=== PATIENT | female | born 2000 | race Caucasian/White ===

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

== ENCOUNTER 2021-02-16 18:43 | Emergency (ER) | payer OTHER ==
[2021-02-16 18:55] VITALS: TEMP 97.9
[2021-02-16] MEDS ORDERED: SODIUM CHLORIDE 0.9% 1,000 ML IV STA (19:05)
--- NOTE | 2021-02-16 19:18 | ED ---
Abdominal Pain HPI - General Chief Complaint: Abdominal Pain Stated Complaint: flank pain Time Seen by Provider: 02/16/21 18:56 Source: patient, RN notes reviewed Mode of arrival: ambulatory Limitations: no limitations - History of Present Illness Initial Comments: Patient is a 20-year-old female that presents to emergency department complaining of bilateral flank pain, hematuria and possibly passing some kidney stones. She notes that she been having back pain for last couple weeks but the hematuria started a few days ago. She notes that she does have extreme discomfort on urination at this point. She denied any possible STDs or at this point. She was in no apparent distress or pain while sitting up during the exam and interview. She denied any pain stating was more just uncomfortable. She declined need for any pain medication. She denied any nausea. She denied chest pain shortness breath headache vomiting diarrhea constipation fever fatigue chills. - Related Data Previous Rx's Medication Instructions Recorded Ciprofloxacin HCl [Cipro] 500 mg PO Q12HR #14 tablet 02/16/21 Allergies Allergy/AdvReac Type Severity Reaction Status Date / Time No Known Allergies Allergy Verified 02/16/21 19:15 Review of Systems ROS Statement: Those systems with pertinent positive or pertinent negative responses have been documented in the HPI. ROS Other: All systems not noted in ROS Statement are negative. Past Medical History Past Medical History: GERD/Reflux, Skin Disorder Additional Past Medical History / Comment(s): migraines, psoriasis, History of Any Multi-Drug Resistant Organisms: None Reported Past Surgical History: Adenoidectomy, Ear Surgery, Tonsillectomy Past Anesthesia/Blood Transfusion Reactions: No Reported Reaction Past Psychological History: Anxiety Smoking Status: Never smoker Past Alcohol Use History: None Reported Past Drug Use History: None Reported - Past Family History Mother Family Medical History: No Reported History General Exam Limitations: no limitations General appearance: alert, in no apparent distress Head exam: Present: atraumatic, normocephalic, normal inspection Eye exam: Present: normal appearance, PERRL, EOMI. Absent: scleral icterus, conjunctival injection, periorbital swelling Neck exam: Present: normal inspection Respiratory exam: Present: normal lung sounds bilaterally. Absent: respiratory distress, wheezes, rales, rhonchi, stridor Cardiovascular Exam: Present: regular rate, normal rhythm, normal heart sounds. Absent: systolic murmur, diastolic murmur, rubs, gallop, clicks GI/Abdominal exam: Present: soft, normal bowel sounds. Absent: distended, tenderness, guarding, rebound, rigid Extremities exam: Present: normal inspection, full ROM, normal capillary refill. Absent: tenderness, pedal edema, joint swelling, calf tenderness Back exam: Present: normal inspection, CVA tenderness (R). Absent: CVA tenderness (L) Neurological exam: Present: alert, oriented X3, CN II-XII intact Psychiatric exam: Present: normal affect, normal mood Skin exam: Present: warm, dry, intact, normal color. Absent: rash Course Vital Signs 02/16/21 18:50 Temperature 97.9 F Pulse Rate 95 Respiratory 20 Rate Blood Pressure 106/68 O2 Sat by Pulse 99 Oximetry Medical Decision Making - Medical Decision Making 20-year-old female complaining of bilateral flank pain, hematuria, possible stones passing. Labs, CT of the abdomen pelvis, 1 L normal saline ordered. Transfer attacks. CT negative for any acute process, kidney stones. 1 g of Rocephin ordered. Case discussed with Dr. Mathews, patient discharge home with follow-up and strict return parameters. - Lab Data Result diagrams: 02/16/21 19:28 02/16/21 19:28 Lab Results 02/16/21 02/16/21 02/16/21 Range/Units 19:28 19:28 19:28 WBC 8.9 (4.0-11.0) k/uL RBC 4.32 (3.80-5.40) m/uL Hgb 13.6 (11.4-16.0) gm/dL Hct 39.5 (34.0-46.0) % MCV 91.3 (80.0-100.0) fL MCH 31.4 (25.0-35.0) pg MCHC 34.4 (31.0-37.0) g/dL RDW 12.3 (11.5-15.5) % Plt Count 198 (150-450) k/uL MPV 7.4 Neutrophils % 73 % Lymphocytes % 19 % Monocytes % 6 % Eosinophils % 2 % Basophils % 0 % Neutrophils # 6.4 (1.3-7.7) k/uL Lymphocytes # 1.7 (1.0-4.8) k/uL Monocytes # 0.5 (0-1.0) k/uL Eosinophils # 0.1 (0-0.7) k/uL Basophils # 0.0 (0-0.2) k/uL Sodium (137-145) mmol/L Potassium (3.5-5.1) mmol/L Chloride (98-107) mmol/L Carbon Dioxide (22-30) mmol/L Anion Gap mmol/L BUN (7-17) mg/dL Creatinine (0.52-1.04) mg/dL Est GFR (CKD-EPI)AfAm (>60 ml/min/1.73 sqM) Est GFR (CKD-EPI)NonAf (>60 ml/min/1.73 sqM) Glucose (74-99) mg/dL Calcium (8.4-10.2) mg/dL Total Bilirubin (0.2-1.3) mg/dL AST (14-36) U/L ALT (4-34) U/L Alkaline Phosphatase (38-126) U/L Total Protein (6.3-8.2) g/dL Albumin (3.5-5.0) g/dL Amylase (30-110) U/L Lipase (23-300) U/L Urine Color Yellow Urine Appearance Cloudy H (Clear) Urine pH 6.0 (5.0-8.0) Ur Specific [place] 1.028 (1.001-1.035) Urine Protein 2+ H (Negative) Urine Glucose (UA) Negative (Negative) Urine Ketones Negative (Negative) Urine Blood Large H (Negative) Urine Nitrite Negative (Negative) Urine Bilirubin Negative (Negative) Urine Urobilinogen <2.0 (<2.0) mg/dL Ur Leukocyte Esterase Large H (Negative) Urine RBC >182 H (0-5) /hpf Urine WBC >182 H (0-5) /hpf Ur Squamous Epith Cells 9 H (0-4) /hpf Urine Bacteria Rare H (None) /hpf Urine Mucus Few H (None) /hpf Urine HCG, Qual Not Detected (Not Detectd) 02/16/21 Range/Units 19:28 WBC (4.0-11.0) k/uL RBC (3.80-5.40) m/uL Hgb (11.4-16.0) gm/dL Hct (34.0-46.0) % MCV (80.0-100.0) fL MCH (25.0-35.0) pg MCHC (31.0-37.0) g/dL RDW (11.5-15.5) % Plt Count (150-450) k/uL MPV Neutrophils % % Lymphocytes % % Monocytes % % Eosinophils % % Basophils % % Neutrophils # (1.3-7.7) k/uL Lymphocytes # (1.0-4.8) k/uL Monocytes # (0-1.0) k/uL Eosinophils # (0-0.7) k/uL Basophils # (0-0.2) k/uL Sodium 140 (137-145) mmol/L Potassium 3.9 (3.5-5.1) mmol/L Chloride 107 (98-107) mmol/L Carbon Dioxide 24 (22-30) mmol/L Anion Gap 9 mmol/L BUN 12 (7-17) mg/dL Creatinine 0.62 (0.52-1.04) mg/dL Est GFR (CKD-EPI)AfAm >90 (>60 ml/min/1.73 sqM) Est GFR (CKD-EPI)NonAf >90 (>60 ml/min/1.73 sqM) Glucose 75 (74-99) mg/dL Calcium 9.6 (8.4-10.2) mg/dL Total Bilirubin 0.4 (0.2-1.3) mg/dL AST 22 (14-36) U/L ALT 11 (4-34) U/L Alkaline Phosphatase 67 (38-126) U/L Total Protein 6.8 (6.3-8.2) g/dL Albumin 4.4 (3.5-5.0) g/dL Amylase 55 (30-110) U/L Lipase 55 (23-300) U/L Urine Color Urine Appearance (Clear) Urine pH (5.0-8.0) Ur Specific [place] (1.001-1.035) Urine Protein (Negative) Urine Glucose (UA) (Negative) Urine Ketones (Negative) Urine Blood (Negative) Urine Nitrite (Negative) Urine Bilirubin (Negative) Urine Urobilinogen (<2.0) mg/dL Ur Leukocyte Esterase (Negative) Urine RBC (0-5) /hpf Urine WBC (0-5) /hpf Ur Squamous Epith Cells (0-4) /hpf Urine Bacteria (None) /hpf Urine Mucus (None) /hpf Urine HCG, Qual (Not Detectd) - Radiology Data Radiology results: report reviewed, image reviewed CT of the abdomen and pelvis: Negative cc scan of the abdomen pelvis no evidence of renal stones or obstruction. Disposition Clinical Impression: Pyelonephritis Disposition: HOME SELF-CARE Condition: Stable Instructions (If sedation given, give patient instructions): Kidney Infection (ED) Additional Instructions: Please return to the Emergency Department if symptoms worsen or any other concerns. Please return if symptoms worsen and/or use pains any fever nausea vomiting. Take antibiotics as prescribed until complete. Can take Tylenol Motrin as needed for pain control. Follow-up with primary care in the next 3-5 days. Increase oral fluid intake. Is patient prescribed a controlled substance at d/c from ED?: No Referrals: Parveen Wiggins MD [Primary Care Provider] - 1-2 days Time of Disposition: 21:10
[2021-02-16 19:41] LABS: Basophils % (A) 0 %; Eosinophils # (A) 0.1 k/uL (0-0.7); Eosinophils % (A) 2 %; HCT 39.5 % (34.0-46.0); HGB 13.6 gm/dL (11.4-16.0); Lymphocytes # (A) 1.7 k/uL (1.0-4.8); Lymphocytes % (A) 19 %; MCH 31.4 pg (25.0-35.0); MCHC 34.4 g/dL (31.0-37.0); MCV 91.3 fL (80.0-100.0); Mean Platelet Volume 7.4; Monocytes # (A) 0.5 k/uL (0-1.0); Monocytes % (A) 6 %; Neutrophils # (A) 6.4 k/uL (1.3-7.7); Neutrophils % (A) 73 %; Platelet Count 198 k/uL (150-450); RBC 4.32 m/uL (3.80-5.40); RDW 12.3 % (11.5-15.5); WBC 8.9 k/uL (4.0-11.0)
[2021-02-16 19:47] LABS: Appearance,Urine Cloudy (Clear); Bacteria,Urine Rare /hpf; Bilirubin,Urine Negative (Negative); Blood,Urine Large (Negative); Color,Urine Yellow; Glucose,Urine (UA) Negative (Negative); Ketones,Urine Negative (Negative); Leukocyte Esterase,Urine Large (Negative); Mucus,Urine Few /hpf; Nitrite,Urine Negative (Negative); Protein,Urine 2+ (Negative); RBC,Urine >182 /hpf (0-5); Specific Gravity,Urine 1.028 (1.001-1.035); Squamous Epithelial Cell,Urine 9 /hpf (0-4); Urobilinogen,Urine <2.0 mg/dL (<2.0); WBC,Urine >182 /hpf (0-5)
[2021-02-16 19:52] LABS: ALT 11 U/L (4-34); AST 22 U/L (14-36); African American GFR (CKD) >90 (>60 ml/min/1.73 sqM); Albumin 4.4 g/dL (3.5-5.0); Alkaline Phosphatase 67 U/L (38-126); Amylase 55 U/L (30-110); Anion Gap 9 mmol/L; Blood Urea Nitrogen 12 mg/dL (7-17); Calcium 9.6 mg/dL (8.4-10.2); Carbon Dioxide 24 mmol/L (22-30); Chloride 107 mmol/L (98-107); Glucose 75 mg/dL (74-99); Lipase 55 U/L (23-300); Non-African American GFR(CKD) >90 (>60 ml/min/1.73 sqM); Potassium 3.9 mmol/L (3.5-5.1); Sodium 140 mmol/L (137-145); Total Bilirubin 0.4 mg/dL (0.2-1.3); Total Protein 6.8 g/dL (6.3-8.2)
--- NOTE | 2021-02-16 20:58 | CT ---
EXAMINATION TYPE: CT abdomen pelvis w con DATE OF EXAM: 02/16/2021 COMPARISON: None HISTORY: Bilateral flank pain and hematuria. CT DLP: 330.7 mGycm Automated exposure control for dose reduction was used. CONTRAST: Performed with IV Contrast, patient injected with 100ml mL of Isovue 300. Images obtained from the diaphragm to the floor the pelvis with IV contrast. Lung bases are clear. There is no pleural effusion. Heart size is normal. There is no pericardial eff usion. Liver spleen stomach pancreas gallbladder appear normal. The bile ducts are not dilated. There is no adrenal mass. Kidneys show satisfactory contrast opacification. There is no hydronephrosi s. Ureters are not dilated. There is no inguinal hernia. Bladder distends smoothly. There is no free fluid in the pelvis. Uterus is anteverted. I see no pelvic mass. There is no mesenteric edema. There is no ascites or free air. There is no bowel obstruction. There a ppears to be air-filled posterior appendix appears normal. Lumbar vertebra have normal spacing and alignment. Posterior elements are intact. The bony pelvis is intact. Sacroiliac joints appear intact. Hip joints appear normal. IMPRESSION: Negative CT scan of the abdomen pelvis. No evidence of renal stone or obstruction.
[2021-02-16] MEDS ORDERED: cefTRIAXone IN SWFI 1,000 MG/10 ML SYRINGE IVP STA (21:08)
[2021-02-16 22:05] VITALS: BP 122/78; PULSE 77; RESP 16
== END 2021-02-16 22:05 | disposition home or self-care (01) ==
LOC: EC 18:43
DX: N12 Tubulo-interstitial nephritis, not specified as acute or chronic (principal); K21.9 Gastro-esophageal reflux disease without esophagitis; F41.9 Anxiety disorder, unspecified
CPT/HCPCS: 36415; 80053; 82150; 83690; 85025; 81001; 81025; 87086; 74177; 99284; 96374; J0696; Q9967; 87077; 87186

== ENCOUNTER 2021-03-24 10:29 | Inpatient (IN) | payer OTHER ==
[2021-03-24] MEDS ORDERED: MORPHINE SULFATE 2 MG/ML SYRINGE IVP STA (11:31)
[2021-03-24] MEDS ORDERED: SODIUM CHLORIDE 0.9% 1,000 ML IV STA ×2 (11:31→13:23)
[2021-03-24] MEDS ORDERED: KETOROLAC 15 MG/ML 1 ML VIAL IVP STA (11:31)
[2021-03-24] MEDS ORDERED: ONDANSETRON 4 MG/2 ML VIAL IVP STA (11:31)
--- NOTE | 2021-03-24 11:46 | ED ---
Female Urogenital HPI - General Chief complaint: Urogenital Stated complaint: weakness, abd pain Time Seen by Provider: 03/24/21 10:57 Source: patient Mode of arrival: wheelchair Limitations: no limitations - History of Present Illness Initial comments: Patient is a 21-year-old female presenting to the emergency Department with complaints of lower abdominal pain that started yesterday. States this started yesterday in the afternoon and has progressed. She describes the pain as over her bladder and near the right lower quadrant. She states today it is very severe, she's been having nausea and vomiting. She also had a few episodes of diarrhea. She has not had anything for pain today. She denies any abdominal surgeries in the past, she denies being . She denies any hematuria or dysuria. She denies any chest pain or short of breath, no fevers. She has no further complaints at this time. Upon arrival to the ER, she has tachycardia at 110, rest of vitals within normal limits. Last Menstrual Period: 03/23/21 - Related Data Previous Rx's Medication Instructions Recorded Ciprofloxacin HCl [Cipro] 500 mg PO Q12HR #14 tablet 02/16/21 Allergies Allergy/AdvReac Type Severity Reaction Status Date / Time No Known Allergies Allergy Verified 03/24/21 10:53 Review of Systems ROS Statement: Those systems with pertinent positive or pertinent negative responses have been documented in the HPI. ROS Other: All systems not noted in ROS Statement are negative. Past Medical History Past Medical History: GERD/Reflux, Skin Disorder Additional Past Medical History / Comment(s): migraines, psoriasis, History of Any Multi-Drug Resistant Organisms: None Reported Past Surgical History: Adenoidectomy, Ear Surgery, Tonsillectomy Past Anesthesia/Blood Transfusion Reactions: No Reported Reaction Past Psychological History: Anxiety Smoking Status: Vaper Past Alcohol Use History: None Reported Past Drug Use History: None Reported - Past Family History Mother Family Medical History: No Reported History General Exam - General Exam Comments Initial Comments: GENERAL: Patient is well-developed and well-nourished. Patient is nontoxic and in moderate distress. HEAD: Atraumatic, normocephalic. EYES: Pupils equal round and reactive to light, extraocular movements intact, sclera anicteric, conjunctiva are normal. Eyelids were unremarkable. ENT: TMs normal, nares patent, oropharynx clear without exudates. Moist mucous membranes. NECK: Normal range of motion, supple without lymphadenopathy or JVD. LUNGS: Unlabored respirations. Breath sounds clear to auscultation bilaterally and equal. No wheezes rales or rhonchi. HEART: Regular rate and rhythm without murmurs, rubs or gallops. ABDOMEN: Soft, very tender to palpation in the right lower quadrant, lower mid abdomen, positive guarding, normoactive bowel sounds. No masses appreciated. MUSCULOSKELETAL: Normal extremities with adequate strength and normal range of motion, no pitting or edema. No clubbing or cyanosis. NEUROLOGICAL: Patient is alert and oriented x 3. Motor and sensory are also intact. Cranial nerves II through XII grossly intact. Symmetrical smile. Normal speech, normal gait. PSYCH: Normal mood, normal affect. SKIN: Warm, Dry, normal turgor, no rashes or lesions noted. Limitations: no limitations External exam: Present: normal external exam Speculum exam: Present: normal speculum exam. Absent: vaginal discharge, cervical discharge, vaginal bleeding, foreign body By manual exam: Present: normal by manual exam Course Vital Signs 03/24/21 03/24/21 03/24/21 10:49 12:02 13:09 Temperature 98.8 F Pulse Rate 110 H 106 H 98 Respiratory 18 20 20 Rate Blood Pressure 91/55 85/56 99/55 O2 Sat by Pulse 98 99 99 Oximetry 03/24/21 03/24/21 03/24/21 14:00 15:00 16:00 Temperature Pulse Rate 105 H 102 H 107 H Respiratory 20 20 20 Rate Blood Pressure 93/53 90/51 O2 Sat by Pulse 100 100 100 Oximetry 03/24/21 17:00 Temperature Pulse Rate 109 H Respiratory 20 Rate Blood Pressure 94/53 O2 Sat by Pulse 100 Oximetry - Reevaluation(s) Reevaluation #1: 03/24/21 14:14 Patient was reevaluated, pain has improved slightly with the pain medications. We have been awaiting a urine sample to rule out for computed tomography scan. Patient was unable to go, she was straight cathed, no urine was obtained. After an additional 30-40 minutes, patient was able to ride a small urine sample, urine is negative. We are awaiting a computed tomography scan. Was placed on maintenance fluids. Medical Decision Making - Medical Decision Making Patient is a 21-year-old female here for right lower quadrant abdominal pain started yesterday along with nausea and vomiting. Her vitals are stable other than being tachycardia. She is severely tender in the right lower quadrant, low er mid abdomen. Laboratory white count 13.1, lactic acid is elevated at 2.6, creatinine is up from baseline of 1.45, GFR is 52. Patient has been attempting to provide a urine however has been unsuccessful, we even tried to straight cath her, only obtain a few drops of urine enough for a test which is negative. CT the abdomen and pelvis shows fluid in the distal colon and in the rectum consistent with diarrhea, decreased contrast in the renal collecting systems could relate to acute renal failure, no other acute abnormalities seen, no sign for appendicitis. Patient was given fluids, pain control, Zofran. She does report some mild improvement in her symptoms. Pelvic exam revealed no acute findings, gonorrhea, Media, genital culture are all pending, Trichomonas is negative. Patient has still been unable to give us a urine sample. Transvaginal ultrasound revealed no acute findings. Patient's heart rate continues to be above 100 after a liter and half bolus of fluids, blood pressure has been in the 90s over 50s. Patient will be admitted for dehydration, HIRAM, nausea vomiting diarrhea. Patient accepted by Dr. Somers, he will continue with fluids, dose of Cipro and Flagyl per Dr. Somers. C. diff was ordered. Case discussed with Dr. Gutierrez. - Lab Data Result diagrams: 03/24/21 12:02 03/24/21 12:02 Lab Results 03/24/21 03/24/21 03/24/21 Range/Units 12:02 12:02 12:02 WBC 13.1 H (4.0-11.0) k/uL RBC 4.63 (3.80-5.40) m/uL Hgb 13.9 (11.4-16.0) gm/dL Hct 42.9 (34.0-46.0) % MCV 92.8 (80.0-100.0) fL MCH 30.0 (25.0-35.0) pg MCHC 32.3 (31.0-37.0) g/dL RDW 12.8 (11.5-15.5) % Plt Count 191 (150-450) k/uL MPV 7.1 Neutrophils % 94 % Lymphocytes % 3 % Monocytes % 3 % Eosinophils % 0 % Basophils % 0 % Neutrophils # 12.3 H (1.3-7.7) k/uL Lymphocytes # 0.3 L (1.0-4.8) k/uL Monocytes # 0.3 (0-1.0) k/uL Eosinophils # 0.0 (0-0.7) k/uL Basophils # 0.0 (0-0.2) k/uL Sodium 140 (137-145) mmol/L Potassium 3.9 (3.5-5.1) mmol/L Chloride 108 H (98-107) mmol/L Carbon Dioxide 18 L (22-30) mmol/L Anion Gap 14 mmol/L BUN 17 (7-17) mg/dL Creatinine 1.45 H (0.52-1.04) mg/dL Est GFR (CKD-EPI)AfAm 60 (>60 ml/min/1.73 sqM) Est GFR (CKD-EPI)NonAf 52 (>60 ml/min/1.73 sqM) Glucose 125 H (74-99) mg/dL Lactic Ac Sepsis Rflx Plasma Lactic Acid Gopi 2.6 H* (0.7-2.0) mmol/L Calcium 9.9 (8.4-10.2) mg/dL Total Bilirubin 1.7 H (0.2-1.3) mg/dL AST 27 (14-36) U/L ALT 18 (4-34) U/L Alkaline Phosphatase 67 (38-126) U/L Total Protein 7.4 (6.3-8.2) g/dL Albumin 4.7 (3.5-5.0) g/dL Amylase 53 (30-110) U/L Lipase 21 L (23-300) U/L Urine HCG, Qual (Not Detectd) Trichomonas Ag (Rapid) (Negative) 03/24/21 03/24/21 03/24/21 Range/Units 12:16 12:30 15:41 WBC (4.0-11.0) k/uL RBC (3.80-5.40) m/uL Hgb (11.4-16.0) gm/dL Hct (34.0-46.0) % MCV (80.0-100.0) fL MCH (25.0-35.0) pg MCHC (31.0-37.0) g/dL RDW (11.5-15.5) % Plt Count (150-450) k/uL MPV Neutrophils % % Lymphocytes % % Monocytes % % Eosinophils % % Basophils % % Neutrophils # (1.3-7.7) k/uL Lymphocytes # (1.0-4.8) k/uL Monocytes # (0-1.0) k/uL Eosinophils # (0-0.7) k/uL Basophils # (0-0.2) k/uL Sodium (137-145) mmol/L Potassium (3.5-5.1) mmol/L Chloride (98-107) mmol/L Carbon Dioxide (22-30) mmol/L Anion Gap mmol/L BUN (7-17) mg/dL Creatinine (0.52-1.04) mg/dL Est GFR (CKD-EPI)AfAm (>60 ml/min/1.73 sqM) Est GFR (CKD-EPI)NonAf (>60 ml/min/1.73 sqM) Glucose (74-99) mg/dL Lactic Ac Sepsis Rflx Y Plasma Lactic Acid Gopi 2.0 (0.7-2.0) mmol/L Calcium (8.4-10.2) mg/dL Total Bilirubin (0.2-1.3) mg/dL AST (14-36) U/L ALT (4-34) U/L Alkaline Phosphatase (38-126) U/L Total Protein (6.3-8.2) g/dL Albumin (3.5-5.0) g/dL Amylase (30-110) U/L Lipase (23-300) U/L Urine HCG, Qual Not Detected (Not Detectd) Trichomonas Ag (Rapid) (Negative) 03/24/21 Range/Units 16:07 WBC (4.0-11.0) k/uL RBC (3.80-5.40) m/uL Hgb (11.4-16.0) gm/dL Hct (34.0-46.0) % MCV (80.0-100.0) fL MCH (25.0-35.0) pg MCHC (31.0-37.0) g/dL RDW (11.5-15.5) % Plt Count (150-450) k/uL MPV Neutrophils % % Lymphocytes % % Monocytes % % Eosinophils % % Basophils % % Neutrophils # (1.3-7.7) k/uL Lymphocytes # (1.0-4.8) k/uL Monocytes # (0-1.0) k/uL Eosinophils # (0-0.7) k/uL Basophils # (0-0.2) k/uL Sodium (137-145) mmol/L Potassium (3.5-5.1) mmol/L Chloride (98-107) mmol/L Carbon Dioxide (22-30) mmol/L Anion Gap mmol/L BUN (7-17) mg/dL Creatinine (0.52-1.04) mg/dL Est GFR (CKD-EPI)AfAm (>60 ml/min/1.73 sqM) Est GFR (CKD-EPI)NonAf (>60 ml/min/1.73 sqM) Glucose (74-99) mg/dL Lactic Ac Sepsis Rflx Plasma Lactic Acid Gopi (0.7-2.0) mmol/L Calcium (8.4-10.2) mg/dL Total Bilirubin (0.2-1.3) mg/dL AST (14-36) U/L ALT (4-34) U/L Alkaline Phosphatase (38-126) U/L Total Protein (6.3-8.2) g/dL Albumin (3.5-5.0) g/dL Amylase (30-110) U/L Lipase (23-300) U/L Urine HCG, Qual (Not Detectd) Trichomonas Ag (Rapid) Negative (Negative) Disposition Clinical Impression: Dehydration, HIRAM (acute kidney injury), Nausea vomiting and diarrhea, Abdominal pain Disposition: ADMITTED IP TO THIS [facility] Condition: Stable Referrals: Parveen Wiggins MD [Primary Care Provider] - 1-2 days Decision Date: 03/24/21 Decision Time: 18:06
[2021-03-24 12:19] LABS: Albumin 4.7 g/dL (3.5-5.0); Calcium 9.9 mg/dL (8.4-10.2); Potassium 3.9 mmol/L (3.5-5.1); Total Bilirubin 1.7 mg/dL (0.2-1.3); Total Protein 7.4 g/dL (6.3-8.2)
[2021-03-24 12:38] LABS: Basophils % (A) 0 %; Eosinophils % (A) 0 %; HCT 42.9 % (34.0-46.0); HGB 13.9 gm/dL (11.4-16.0); Lymphocytes # (A) 0.3 k/uL (1.0-4.8); Lymphocytes % (A) 3 %; MCHC 32.3 g/dL (31.0-37.0); MCV 92.8 fL (80.0-100.0); Mean Platelet Volume 7.1; Monocytes # (A) 0.3 k/uL (0-1.0); Monocytes % (A) 3 %; Neutrophils # (A) 12.3 k/uL (1.3-7.7); Neutrophils % (A) 94 %; Platelet Count 191 k/uL (150-450); RBC 4.63 m/uL (3.80-5.40); RDW 12.8 % (11.5-15.5); WBC 13.1 k/uL (4.0-11.0)
--- NOTE | 2021-03-24 14:52 | CT ---
EXAMINATION TYPE: CT abdomen pelvis w con DATE OF EXAM: 03/24/2021 COMPARISON: 02/16/2021 HISTORY: Pelvic pain with vomiting and diarrhea, CT DLP: 508.1 mGycm Automated exposure control for dose reduction was used. CONTRAST: Performed with IV Contrast, patient injected with 100 mL of Isovue 300. Lung bases are clear. There is no pleural effusion. Heart size is normal. There is no pericardial eff usion. Liver spleen stomach pancreas gallbladder appear intact. The bile ducts are not dilated. There is no adrenal mass. Kidneys show satisfactory contrast opacification. There is no hydronephrosi s. Ureters are not dilated. Delayed images show decreased contrast in the renal collecting systems. T here is no retroperitoneal adenopathy. Ureters are not dilated. Bladder distends smoothly. There is n o inguinal hernia. There is fluid in the large bowel down to the rectum. Appendix appears normal. Ter sonny ileum appears normal. The uterus is anteverted. There is no free fluid in the pelvis. There is no evidence of a pelvic mass. The lumbar vertebra have normal alignment. There is no compression fracture. Posterior elements are i ntact. Bony pelvis is intact. Hip joints are intact. IMPRESSION: Fluid down to the rectum consistent with diarrhea. There is somewhat decreased contrast in the renal collecting systems on the delayed images that could relate to acute renal failure. Clinical correlation needed. No renal obstruction.
[2021-03-24] MEDS ORDERED: SODIUM CHLORIDE 0.9% 500 ML 500 ML IV STA (16:19)
--- NOTE | 2021-03-24 17:06 | US ---
EXAMINATION TYPE: US transvaginal DATE OF EXAM: 03/24/2021 COMPARISON: CT 03/24/2021 CLINICAL HISTORY: pelvic pain, n/v. TECHNIQUE: . Transvaginal sonographic images of the pelvis were acquired. Date of LMP: 03/18/2021 EXAM MEASUREMENTS: Uterus: 7.8 x 3.6 x 4.5 cm Endometrial Stripe: 0.4 cm Right Ovary: 5.3 x 2.4 x 2.3 cm Left Ovary: 4.3 x 2.7 x 2.5 cm 1. Uterus: Anteverted wnl 2. Endometrium: wnl 3. Right Ovary: wnl 4. Left Ovary: wnl Spectral, color and waveform doppler imaging shows good arterial and venous flow within the ovaries ; there is no evidence for ovarian torsion. 5. Bilateral Adnexa: wnl 6. Posterior cul-de-sac: wnl IMPRESSION: Negative exam. No adnexal mass or free fluid. No evidence of ovarian torsion.
[2021-03-24] MEDS ORDERED: NALOXONE 0.4 MG/ML 1 ML VIAL IV PRN (18:02)
[2021-03-24] MEDS ORDERED: ONDANSETRON 4 MG/2 ML VIAL IVP PRN (18:04)
[2021-03-24] MEDS ORDERED: metroNIDAZOLE 500 MG TAB PO STA (18:11)
[2021-03-24] MEDS ORDERED: CIPROFLOXACIN HCL 500 MG TAB PO STA (18:11)
[2021-03-24] MEDS: SODIUM CHLORIDE 0.9% 1,000 ML IV SCH (18:29)
[2021-03-24] MEDS: KETOROLAC 15 MG/ML 1 ML VIAL IVP PRN ×2 (18:31→23:10)
[2021-03-25] MEDS: SODIUM CHLORIDE 0.9% 1,000 ML IV SCH ×3 (04:34→17:31)
[2021-03-25] MEDS: KETOROLAC 15 MG/ML 1 ML VIAL IVP PRN ×2 (08:20→14:24)
[2021-03-25 09:28] LABS: Appearance,Urine Cloudy (Clear); Bacteria,Urine Rare /hpf; Bilirubin,Urine Negative (Negative); Blood,Urine Large (Negative); Color,Urine Light Red; Glucose,Urine (UA) Negative (Negative); Ketones,Urine 1+ (Negative); Leukocyte Esterase,Urine Trace (Negative); Mucus,Urine Rare /hpf; Nitrite,Urine Negative (Negative); Protein,Urine 1+ (Negative); RBC,Urine >182 /hpf (0-5); Specific Gravity,Urine 1.033 (1.001-1.035); Squamous Epithelial Cell,Urine 6 /hpf (0-4); Urobilinogen,Urine <2.0 mg/dL (<2.0); WBC,Urine 23 /hpf (0-5)
[2021-03-25] MEDS ORDERED: SODIUM CHLORIDE 0.9% 500 ML 500 ML IV ONE (14:47)
[2021-03-25] MEDS: metroNIDAZOLE-NS PMX 500 MG in SALINE 1 100ML.BAG IVPB SCH (17:08)
[2021-03-25] MEDS: LEVOFLOXACIN 500MG-D5W PMX 500 MG in DEXTROSE/WATER 1 100ML.BAG IVPB SCH (17:27)
--- NOTE | 2021-03-25 18:11 | P.HPIM ---
History of Present Illness H&P Date: 03/25/21 This is a 21-year-old lady, presents to emergency room, with complaints of lower abdominal pain, of 2 days' duration, accompanied by significant diarrhea, over 10 times in the past 24 hours, pain is on both right lower quadrant lower quadrant left lower quadrant area, suprapubic area. This is with nausea vomiting, and myalgia. No fever, no chills, no recent sick contacts, no foreign travels, patient denies any cough or dorsalis for this, no recent techniques, however upon arrival to the emergency room, she had a near syncopal event, once. She was assessed in the emergency room, and was near syncope dehydrated,. As she also stated, she has bowel movements postprandial which is routine for her, no history of IBS, no history of celiac disease, In the emergency room, she had CAT scan of the abdomen and pelvis, there is fluid down to the rectum consistent with diarrhea, there is no retroperitoneal adenopathy, ureters are not dilated, inguinal hernia, no adrenal mass, lung bases are normal, cardiac normal, no pericardial effusion, spleen pancreas, gallbladder appears intact,, common bile duct is not dilated which failed to reveal any appendicitis, lactic acid is elevated, UCG is negative, pelvic exam was performed by the emergency room, with no acute findings, cultures were sent for gonorrhea Chlamydia, Trichomonas negative. Transvaginal ultrasound fails to reveal any acute findings, she was tachycardic on ER entry, with significant low blood pressures with 80 systolic, multiple fluid boluses has been patient just finished her menstrual cycle t2 days ago, she does have urine WBC of 23, RBC of 182, C. diff was sent negative, Trichomonas antigen negative, she has 1+ ketones and urine, specific gravity 1.033. Creatinine 1.45, CO2 of 18 liver function test is normal she has significant tenderness in the lower abdomen on examination, IV antibiotics Flagyl and Levaquin started, Review of Systems Constitutional: Reports as per HPI, Denies anorexia, Denies chills, Denies chronic headaches, Denies chronic pain, Denies daytime sleepiness, Denies fatigue, Denies fever, Denies lethargy, Denies malaise, Denies night sweats, Denies poor appetite, Denies sweats, Denies weakness, Denies weight gain, Denies weight loss Past Medical History Past Medical History: GERD/Reflux, Skin Disorder Additional Past Medical History / Comment(s): migraines, psoriasis, History of Any Multi-Drug Resistant Organisms: None Reported Past Surgical History: Adenoidectomy, Ear Surgery, Tonsillectomy Past Anesthesia/Blood Transfusion Reactions: No Reported Reaction Past Psychological History: Anxiety Smoking Status: Vaper Past Alcohol Use History: None Reported Past Drug Use History: None Reported - Past Family History Mother History Unknown: Yes (IBS) Family Medical History: CVA/TIA Father Family Medical History: Unable to Obtain Brother(s) Family Medical History: No Reported History Medications and Allergies Home Medications Medication Instructions Recorded Confirmed Type No Known Home Medications 03/24/21 03/24/21 History Allergies Allergy/AdvReac Type Severity Reaction Status Date / Time No Known Allergies Allergy Verified 03/24/21 18:17 Physical Exam Vitals: Vital Signs Temp Pulse Pulse Resp BP BP BP 03/25/21 08:00 104 H 16 03/25/21 07:00 98.3 F 104 H 16 75/35 97/59 03/25/21 02:00 98.8 F 103 H 18 81/40 03/24/21 20:00 99.7 F H 119 H 18 80/46 03/24/21 19:34 124 H 18 91/46 03/24/21 19:00 105 H 20 03/24/21 18:00 110 H 20 03/24/21 17:00 109 H 20 94/53 03/24/21 16:00 107 H 20 90/51 03/24/21 15:00 102 H 20 03/24/21 14:00 105 H 20 93/53 Pulse Ox 03/25/21 08:00 03/25/21 07:00 98 03/25/21 02:00 97 03/24/21 20:00 98 03/24/21 19:34 97 03/24/21 19:00 100 03/24/21 18:00 100 03/24/21 17:00 100 03/24/21 16:00 100 03/24/21 15:00 100 03/24/21 14:00 100 Intake and Output 03/24/21 03/25/21 03/25/21 22:59 06:59 14:59 Other: Voiding Method Toilet Toilet Toilet # Voids 2 1 # Bowel Movements 2 Weight 51.256 kg - Constitutional General appearance: cooperative, no acute distress - EENT Eyes: EOMI, PERRLA, dentition normal ENT: NA/AT, normal oropharynx - Neck Neck: normal ROM - Respiratory Respiratory: bilateral: CTA, negative: diminished, dullness, rales - Cardiovascular Rhythm: regular Heart sounds: normal: S1, S2 Abnormal Heart Sounds: systolic murmur, diastolic murmur - Gastrointestinal General gastrointestinal: normal bowel sounds, soft Localized gastrointestinal: tender: RLQ, LLQ, suprabubic - Integumentary Integumentary: decreased turgor, normal - Neurologic Neurologic: CNII-XII intact - Musculoskeletal Musculoskeletal: gait normal, strength equal bilaterally - Psychiatric Psychiatric: A&O x's 3, appropriate affect, intact judgment & insight Results CBC & Chem 7: 03/24/21 12:02 03/24/21 12:02 Labs: Abnormal Lab Results - Last 24 Hours (Table) 03/25/21 Range/Units 09:05 Urine Appearance Cloudy H (Clear) Urine Protein 1+ H (Negative) Urine Ketones 1+ H (Negative) Urine Blood Large H (Negative) Ur Leukocyte Esterase Trace H (Negative) Urine RBC >182 H (0-5) /hpf Urine WBC 23 H (0-5) /hpf Ur Squamous Epith Cells 6 H (0-4) /hpf Urine Bacteria Rare H (None) /hpf Urine Mucus Rare H (None) /hpf Microbiology - Last 24 Hours (Table) 03/24/21 16:07 Genital Culture - Preliminary Cervix Laboratory Results WBC 13.1 k/uL (4.0-11.0) H 03/24/21 12:02 RBC 4.63 m/uL (3.80-5.40) 03/24/21 12:02 Hgb 13.9 gm/dL (11.4-16.0) 03/24/21 12:02 Hct 42.9 % (34.0-46.0) 03/24/21 12:02 MCV 92.8 fL (80.0-100.0) 03/24/21 12:02 MCH 30.0 pg (25.0-35.0) 03/24/21 12:02 MCHC 32.3 g/dL (31.0-37.0) 03/24/21 12:02 RDW 12.8 % (11.5-15.5) 03/24/21 12:02 Plt Count 191 k/uL (150-450) 03/24/21 12:02 MPV 7.1 03/24/21 12:02 Neutrophils % 94 % 03/24/21 12:02 Lymphocytes % 3 % 03/24/21 12:02 Monocytes % 3 % 03/24/21 12:02 Eosinophils % 0 % 03/24/21 12:02 Basophils % 0 % 03/24/21 12:02 Neutrophils # 12.3 k/uL (1.3-7.7) H 03/24/21 12:02 Lymphocytes # 0.3 k/uL (1.0-4.8) L 03/24/21 12:02 Monocytes # 0.3 k/uL (0-1.0) 03/24/21 12:02 Eosinophils # 0.0 k/uL (0-0.7) 03/24/21 12:02 Basophils # 0.0 k/uL (0-0.2) 03/24/21 12:02 Sodium 140 mmol/L (137-145) 03/24/21 12:02 Potassium 3.9 mmol/L (3.5-5.1) 03/24/21 12:02 Chloride 108 mmol/L (98-107) H 03/24/21 12:02 Carbon Dioxide 18 mmol/L (22-30) L 03/24/21 12:02 Anion Gap 14 mmol/L 03/24/21 12:02 BUN 17 mg/dL (7-17) 03/24/21 12:02 Creatinine 1.45 mg/dL (0.52-1.04) H 03/24/21 12:02 Est GFR (CKD-EPI)AfAm 60 (>60 ml/min/1.73 sqM) 03/24/21 12:02 Est GFR (CKD-EPI)NonAf 52 (>60 ml/min/1.73 sqM) 03/24/21 12:02 Glucose 125 mg/dL (74-99) H 03/24/21 12:02 Lactic Ac Sepsis Rflx Y 03/24/21 12:16 Plasma Lactic Acid Gopi 2.0 mmol/L (0.7-2.0) 03/24/21 15:41 Calcium 9.9 mg/dL (8.4-10.2) 03/24/21 12:02 Total Bilirubin 1.7 mg/dL (0.2-1.3) H 03/24/21 12:02 AST 27 U/L (14-36) 03/24/21 12:02 ALT 18 U/L (4-34) 03/24/21 12:02 Alkaline Phosphatase 67 U/L (38-126) 03/24/21 12:02 Total Protein 7.4 g/dL (6.3-8.2) 03/24/21 12:02 Albumin 4.7 g/dL (3.5-5.0) 03/24/21 12:02 Amylase 53 U/L (30-110) 03/24/21 12:02 Lipase 21 U/L (23-300) L 03/24/21 12:02 Urine Color Light Red 03/25/21 09:05 Urine Appearance Cloudy (Clear) H 03/25/21 09:05 Urine pH 6.0 (5.0-8.0) 03/25/21 09:05 Ur Specific [place] 1.033 (1.001-1.035) 03/25/21 09:05 Urine Protein 1+ (Negative) H 03/25/21 09:05 Urine Glucose (UA) Negative (Negative) 03/25/21 09:05 Urine Ketones 1+ (Negative) H 03/25/21 09:05 Urine Blood Large (Negative) H 03/25/21 09:05 Urine Nitrite Negative (Negative) 03/25/21 09:05 Urine Bilirubin Negative (Negative) 03/25/21 09:05 Urine Urobilinogen <2.0 mg/dL (<2.0) 03/25/21 09:05 Ur Leukocyte Esterase Trace (Negative) H 03/25/21 09:05 Urine RBC >182 /hpf (0-5) H 03/25/21 09:05 Urine WBC 23 /hpf (0-5) H 03/25/21 09:05 Ur Squamous Epith Cells 6 /hpf (0-4) H 03/25/21 09:05 Urine Bacteria Rare /hpf (None) H 03/25/21 09:05 Urine Mucus Rare /hpf (None) H 03/25/21 09:05 Urine HCG, Qual Not Detected (Not Detectd) 03/24/21 12:30 C. difficile (EIA) Intrp Negative (Negative) 03/24/21 23:46 Trichomonas Ag (Rapid) Negative (Negative) 03/24/21 16:07 Thrombosis Risk Factor Assmnt - DVT/VTE Prophylaxis DVT/VTE Prophylaxis: Low risk, early ambulation encouraged Assessment and Plan Plan: 1. Abdominal pain with significant diarrhea, suspect acute gastroenteritis, cannot rule out colitis, no bowel obstruction on CT, no appendiceal signs , fluid for hydration, patient has hypovolemic shock, with low blood pressures, aggressive fluid hydration, multiple boluses were given the ER, where giving another bolus of 500 today, and another 500 D5.9, repeat BMP, suspect hypokalemia secondary to ongoing losses, H. pylori pending, stool culture pending, C. diff negative. Check for celiac panel, increase to diet to full liquid dairy free 2. Pelvic pain, negative UCG, pending GC chlamydia, trichomonas negative 3. Hypovolemic shock, with new syncope, aggressive fluid hydration, 4. Acute kidney injury, with underlying CK D stage I suspected, baseline from January 2021 was 0.62 5. Metabolic acidosis, sodium bicarb, 2 Amp D5 W, to run at 100 mL an hour 1 bag 6. GI prophylaxis with Pepcid
[2021-03-25 18:52] LABS: African American GFR (CKD) >90 (>60 ml/min/1.73 sqM); Anion Gap 8 mmol/L; Blood Urea Nitrogen 21 mg/dL (7-17); Calcium 8.7 mg/dL (8.4-10.2); Carbon Dioxide 16 mmol/L (22-30); Chloride 111 mmol/L (98-107); Glucose 119 mg/dL (74-99); Non-African American GFR(CKD) >90 (>60 ml/min/1.73 sqM); Potassium 3.2 mmol/L (3.5-5.1); Sodium 135 mmol/L (137-145)
[2021-03-25] MEDS: DEXTROSE 5% IN WATER 1,000 ML with SODIUM BICARB (1 MEQ/ML) 100 ML IV SCH (19:51)
[2021-03-26] MEDS: KETOROLAC 15 MG/ML 1 ML VIAL IVP PRN ×3 (00:02→21:04)
[2021-03-26] MEDS: metroNIDAZOLE-NS PMX 500 MG in SALINE 1 100ML.BAG IVPB SCH ×4 (00:02→23:38)
[2021-03-26] MEDS ORDERED: POTASSIUM CHLORIDE ER 20 MEQ TAB.ER PO STA (01:01)
[2021-03-26] MEDS: POTASSIUM CHLORIDE 10 MEQ in WATER FOR INJECTION 1 100ML.BAG IVPB SCH ×4 (01:28→05:14)
[2021-03-26] MEDS: SODIUM CHLORIDE 0.9% 1,000 ML IV SCH ×3 (03:17→16:30)
[2021-03-26] MEDS: ACETAMINOPHEN TAB 325 MG TAB PO PRN ×2 (07:23→16:15)
[2021-03-26 08:45] LABS: ALT 9 U/L (4-34); AST 18 U/L (14-36); African American GFR (CKD) >90 (>60 ml/min/1.73 sqM); Albumin 2.9 g/dL (3.5-5.0); Albumin/Globulin Ratio 1.2; Alkaline Phosphatase 57 U/L (38-126); Anion Gap 7 mmol/L; Blood Urea Nitrogen 14 mg/dL (7-17); Calcium 9.1 mg/dL (8.4-10.2); Carbon Dioxide 16 mmol/L (22-30); Chloride 110 mmol/L (98-107); Globulin 2.4 g/dL; Glucose 93 mg/dL (74-99); Non-African American GFR(CKD) >90 (>60 ml/min/1.73 sqM); Potassium 3.9 mmol/L (3.5-5.1); Sodium 133 mmol/L (137-145); Total Bilirubin 0.5 mg/dL (0.2-1.3); Total Protein 5.3 g/dL (6.3-8.2)
[2021-03-26 09:17] LABS: HCT 31.3 % (37.2-46.3); HGB 10.4 g/dL (12.0-15.0); MCH 30.5 pg (27.0-32.0); MCHC 33.2 g/dL (32.0-37.0); MCV 91.8 fL (80.0-97.0); Mean Platelet Volume 10.3 fL (9.5-12.2); Platelet Count 163 X 10*3/uL (140-440); RBC 3.41 X 10*6/uL (4.10-5.20); RDW 12.5 % (11.5-14.5); WBC 12.03 X 10*3/uL (4.50-10.00)
[2021-03-26 09:28] LABS: African American GFR (CKD) 152.1 (60.0-200.0); Albumin 3.4 g/dL (3.80-4.90); Albumin/Globulin Ratio 1.89 (1.60-3.17); Anion Gap 8.4 mmol/L (4.00-12.00); Calcium 8.2 mg/dL (8.7-10.3); Carbon Dioxide 16.6 mmol/L (21.6-31.8); Globulin 1.8 g/dL (1.6-3.3); Non-African American GFR(CKD) 131.2 (60.0-200.0); Potassium 3.7 mmol/L (3.5-5.5); Total Bilirubin 0.5 mg/dL (0.2-1.2); Total Protein 5.2 g/dL (6.2-8.2)
[2021-03-26] MEDS: DEXTROSE 5% IN WATER 1,000 ML with SODIUM BICARB (1 MEQ/ML) 100 ML IV SCH (10:02)
[2021-03-26] MEDS: CHOLESTYRAMINE (WITH SUGAR) 4 GM PACKET PO SCH ×2 (10:10→16:15)
[2021-03-26 11:33] LABS: Basophils # (A) 0.02 X 10*3/uL (0.00-0.10); Basophils % (A) 0.2 %; Eosinophils # (A) 0.37 X 10*3/uL (0.04-0.35); Eosinophils % (A) 3.1 %; Lymphocytes # (A) 1.13 X 10*3/uL (0.90-5.00); Lymphocytes % (A) 9.4 %; Monocytes % (A) 3.3 %; Neutrophils # (A) 9.92 X 10*3/uL (1.80-7.70); Neutrophils % (A) 82.4 %
--- NOTE | 2021-03-26 12:35 | P.PN ---
Subjective Progress Note Date: 03/26/21 HISTORY OF PRESENT ILLNESS This is a 21-year-old lady, presents to emergency room, with complaints of lower abdominal pain, of 2 days' duration, accompanied by significant diarrhea, over 10 times in the past 24 hours, pain is on both right lower quadrant lower quadrant left lower quadrant area, suprapubic area. This is with nausea vomiting, and myalgia. No fever, no chills, no recent sick contacts, no foreign travels, patient denies any cough or dorsalis for this, no recent techniques, however upon arrival to the emergency room, she had a near syncopal event, once. She was assessed in the emergency room, and was near syncope dehydrated,. As she also stated, she has bowel movements postprandial which is routine for her, no history of IBS, no history of celiac disease, In the emergency room, she had CAT scan of the abdomen and pelvis, there is fluid down to the rectum consistent with diarrhea, there is no retroperitoneal adenopathy, ureters are not dilated, inguinal hernia, no adrenal mass, lung bases are normal, cardiac normal, no pericardial effusion, spleen pancreas, gallbladder appears intact,, common bile duct is not dilated which failed to reveal any appendicitis, lactic acid is elevated, UCG is negative, pelvic exam was performed by the emergency room, with no acute findings, cultures were sent for gonorrhea Chlamydia, Trichomonas negative. Transvaginal ultrasound fails to reveal any acute findings, she was tachycardic on ER entry, with significant low blood pressures with 80 systolic, multiple fluid boluses has been patient just finished her menstrual cycle t2 days ago, she does have urine WBC of 23, RBC of 182, C. diff was sent negative, Trichomonas antigen negative, she has 1+ ketones and urine, specific gravity 1.033. Creatinine 1.45, CO2 of 18 liver function test is normal she has significant tenderness in the lower abdomen on examination, IV antibiotics Flagyl and Levaquin started, 03/26:temperature max 100.0, heart rate 99, blood pressure 92/56, pulse ox 90% on room air. Repeat blood work reveals sodium 133, potassium 3.9, chloride 110, CO2 16, BUN 14 and creatinine 0.59. Liver function tests are normal. A Chin states she still has some abdominal pain and complains of nausea not as bad as yesterday. C. difficile toxin was negative. Repeat blood work reveals WBC 12.0, hemoglobin 10.4, platelet count 163. Sodium 133, potassium 3.9, chloride 110, CO2 16, BUN 14 and creatinine 0.59. Liver function tests were normal. Patient's bicarb drip was increased and repeat abdominal x-rays ordered for tomorrow morning. Repeat blood work has been ordered for tomorrow as well. REVIEW OF SYSTEMS Constitutional: No fever, no chills, no night sweats. No weight change. No weakness, fatigue or lethargy. No daytime sleepiness. EENT: No headache. No blurred vision or double vision, no loss of vision. No loss of Hearing, no ringing in the ears, no dizziness. No nasal drainage or congestion. No epistaxis. No sore throat. Lungs: No shortness of breath, cough, no sputum production. No wheezing. Cardiovascular: No chest pain, no lower extremity edema. No palpitations. No paroxysmal nocturnal dyspnea. No orthopnea. No lightheadedness or dizziness. No syncopal episodes. Abdominal: Reports abdominal pain. Reports nausea, vomiting. Reports diarrhea. No constipation. No bloody or tarry stools.. Reports loss of appetite. Genitourinary: No dysuria, increased frequency, urgency. No urinary retention. Musculoskeletal: No myalgias. No muscle weakness, no gait dysfunction, no frequent falls. No back pain. No neck pain. Integumentary: No wounds, no lesions. No rash or pruritus. No unusual bruising. No change in hair or nails. Neurologic: No aphasia. No facial droop. No change in mentation. No head injury. No headache. No paralysis. No paresthesia. Psychiatric: No depression. No anxiety. No mood swings. Endocrine: No abnormal blood sugars. No weight change. No excessive sweating or thirst. No cold intolerance. PHYSICAL EXAMINATION Gen: This is 21-year-old female patient resting in bed and appears to be comfo rtable at rest. HEENT: Head is atraumatic, normocephalic. Pupils equal, round. Sclerae is anicteric. NECK: Supple. No JVD. No lymphadenopathy. No thyromegaly. LUNGS: Clear to auscultation. No wheezes or rhonchi. No intercostal retractions. HEART: Regular rate and rhythm. No murmur. ABDOMEN: Soft. Bowel sounds are present. No masses. No tenderness. EXTREMITIES: No pedal edema. No calf tenderness. NEUROLOGICAL: Patient is awake, alert and oriented x3. Cranial nerves 2 through 12 are grossly intact. ASSESSMENT AND PLAN 1. Abdominal pain with significant diarrhea, suspect acute gastroenteritis, cannot rule out colitis, no bowel obstruction on CT, no appendiceal signs , fluid for hydration, patient has hypovolemic shock, with low blood pressures, aggressive fluid hydration, multiple boluses were given the ER, where giving another bolus of 500 today, H pylori pending, stool culture pending, C. diff negative. Check for celiac panel, continue full liquid diet dairy free. 2. Pelvic pain, negative UCG, pending GC chlamydia, trichomonas negative 3. Hypovolemic shock, with new syncope, aggressive fluid hydration, 4. Acute kidney injury, with underlying CK D stage I suspected, baseline from January 2021 was 0.62 5. Metabolic acidosis, sodium bicarb, increased to 3 Amp D5 W, to run at 100 mL an hour 1 bag 6. GI prophylaxis with Pepcid DISCHARGE PLAN Home. Impression and plan of care have been directed as dictated by the signing physician. Shilpa Sanchez nurse practitioner acting as scribe for signing physician. Objective - Vital Signs Vital signs: Vital Signs Temp 100.0 F H 03/26/21 07:00 Pulse 99 03/26/21 07:00 Resp 16 03/26/21 07:00 BP 92/56 03/26/21 07:00 Pulse Ox 98 03/26/21 07:00 Intake & Output 03/25/21 03/26/21 03/26/21 18:59 06:59 18:59 Intake Total 100 Balance 100 Intake: Oral 100 Other: Voiding Method Toilet Toilet # Voids 1 2 - Labs CBC & Chem 7: 03/26/21 04:55 03/26/21 07:57 Labs: Abnormal Lab Results - Last 24 Hours (Table) 03/25/21 03/25/21 03/25/21 Range/Units 09:05 18:16 18:16 Sodium 135 L (137-145) mmol/L Potassium 3.2 L (3.5-5.1) mmol/L Chloride 111 H (98-107) mmol/L Carbon Dioxide 16 L (22-30) mmol/L BUN 21 H (7-17) mg/dL Glucose 119 H (74-99) mg/dL Plasma Lactic Acid Gopi 2.1 H* (0.7-2.0) mmol/L Total Protein (6.3-8.2) g/dL Albumin (3.5-5.0) g/dL Urine Appearance Cloudy H (Clear) Urine Protein 1+ H (Negative) Urine Ketones 1+ H (Negative) Urine Blood Large H (Negative) Ur Leukocyte Esterase Trace H (Negative) Urine RBC >182 H (0-5) /hpf Urine WBC 23 H (0-5) /hpf Ur Squamous Epith Cells 6 H (0-4) /hpf Urine Bacteria Rare H (None) /hpf Urine Mucus Rare H (None) /hpf 03/26/21 Range/Units 07:57 Sodium 133 L (137-145) mmol/L Potassium (3.5-5.1) mmol/L Chloride 110 H (98-107) mmol/L Carbon Dioxide 16 L (22-30) mmol/L BUN (7-17) mg/dL Glucose (74-99) mg/dL Plasma Lactic Acid Gopi (0.7-2.0) mmol/L Total Protein 5.3 L (6.3-8.2) g/dL Albumin 2.9 L (3.5-5.0) g/dL Urine Appearance (Clear) Urine Protein (Negative) Urine Ketones (Negative) Urine Blood (Negative) Ur Leukocyte Esterase (Negative) Urine RBC (0-5) /hpf Urine WBC (0-5) /hpf Ur Squamous Epith Cells (0-4) /hpf Urine Bacteria (None) /hpf Urine Mucus (None) /hpf Microbiology - Last 24 Hours (Table) 03/25/21 09:05 Urine Culture - Preliminary Urine,Voided
[2021-03-26] MEDS: DEXTROSE 5% IN WATER 1,000 ML with SODIUM BICARB (1 MEQ/ML) 150 ML IV SCH (13:57)
[2021-03-26 14:42] LABS: C. trachomatis,PCR Positive (Neg,Equiv); Chlamydia trachomatis Source Cervix; N. gonorrhoeae,PCR Positive (Neg,Equiv); Neisseria Source Cervix
[2021-03-26 16:08] LABS: Gliadin AB IgA, Deaminated NEGATIVE (NEGATIVE); Gliadin AB IgA, Unit 0.2 U/mL
[2021-03-26 16:09] LABS: Gliadin AB IgG, Deaminated NEGATIVE (NEGATIVE)
[2021-03-26] MEDS: LEVOFLOXACIN 500MG-D5W PMX 500 MG in DEXTROSE/WATER 1 100ML.BAG IVPB SCH (16:14)
[2021-03-27] MEDS: DEXTROSE 5% IN WATER 1,000 ML with SODIUM BICARB (1 MEQ/ML) 150 ML IV SCH ×3 (01:16→21:31)
[2021-03-27] MEDS: SODIUM CHLORIDE 0.9% 1,000 ML IV SCH ×4 (01:17→23:57)
[2021-03-27 05:53] LABS: ALT 7 U/L (4-34); AST 14 U/L (14-36); African American GFR (CKD) >90 (>60 ml/min/1.73 sqM); Albumin 2.8 g/dL (3.5-5.0); Albumin/Globulin Ratio 1.3; Alkaline Phosphatase 53 U/L (38-126); Anion Gap 7 mmol/L; Blood Urea Nitrogen 9 mg/dL (7-17); Calcium 8.4 mg/dL (8.4-10.2); Carbon Dioxide 24 mmol/L (22-30); Chloride 105 mmol/L (98-107); Globulin 2.2 g/dL; Glucose 96 mg/dL (74-99); Non-African American GFR(CKD) >90 (>60 ml/min/1.73 sqM); Potassium 3.1 mmol/L (3.5-5.1); Sodium 136 mmol/L (137-145); Total Bilirubin 0.3 mg/dL (0.2-1.3)
[2021-03-27] MEDS ORDERED: Potassium Replacement Protocol 1 EACH MISC MISCELLANE PRN (06:05)
[2021-03-27] MEDS: CHOLESTYRAMINE (WITH SUGAR) 4 GM PACKET PO SCH ×4 (08:12→16:41)
[2021-03-27] MEDS: KETOROLAC 15 MG/ML 1 ML VIAL IVP PRN ×2 (08:12→16:01)
[2021-03-27] MEDS: POTASSIUM CHLORIDE ER 20 MEQ TAB.ER PO SCH ×2 (08:13→09:07)
[2021-03-27] MEDS: metroNIDAZOLE-NS PMX 500 MG in SALINE 1 100ML.BAG IVPB SCH ×3 (08:13→23:56)
[2021-03-27] MEDS ORDERED: AZITHROMYCIN 500 MG TAB PO STA (09:20)
[2021-03-27 09:26] LABS: HCT 28.3 % (37.2-46.3); HGB 9.7 g/dL (12.0-15.0); MCH 30.8 pg (27.0-32.0); MCHC 34.3 g/dL (32.0-37.0); MCV 89.8 fL (80.0-97.0); Mean Platelet Volume 10.1 fL (9.5-12.2); Platelet Count 158 X 10*3/uL (140-440); RBC 3.15 X 10*6/uL (4.10-5.20); RDW 12.6 % (11.5-14.5)
--- NOTE | 2021-03-27 09:39 | XR ---
EXAMINATION TYPE: XR abdomen 2V DATE OF EXAM: 03/27/2021 7:54 AM CLINICAL HISTORY: Ileus COMPARISON: 04/26/2019 TECHNIQUE: Single supine KUB image of the abdomen is obtained. COMPARISON: None. FINDINGS: Mildly dilated loop of small bowel within the left lower quadrant measuring up to 4.5 cm. T here is gas throughout the colon. Air-fluid levels are seen. This may represent a mild ileus or early partial small bowel obstruction. Continued follow-up to resolution is recommended. No free air on th e supine study. IMPRESSION: 1. Mildly dilated loop of small bowel in the left lower quadrant measuring up to 4.5 cm. This may rep resent a focal ileus or early partial small bowel obstruction. There is gas throughout the colon.
--- NOTE | 2021-03-27 13:13 | P.PN ---
Subjective Progress Note Date: 03/27/21 HISTORY OF PRESENT ILLNESS This is a 21-year-old lady, presents to emergency room, with complaints of lower abdominal pain, of 2 days' duration, accompanied by significant diarrhea, over 10 times in the past 24 hours, pain is on both right lower quadrant lower quadrant left lower quadrant area, suprapubic area. This is with nausea vomiting, and myalgia. No fever, no chills, no recent sick contacts, no foreign travels, patient denies any cough or dorsalis for this, no recent techniques, however upon arrival to the emergency room, she had a near syncopal event, once. She was assessed in the emergency room, and was near syncope dehydrated,. As she also stated, she has bowel movements postprandial which is routine for her, no history of IBS, no history of celiac disease, In the emergency room, she had CAT scan of the abdomen and pelvis, there is fluid down to the rectum consistent with diarrhea, there is no retroperitoneal adenopathy, ureters are not dilated, inguinal hernia, no adrenal mass, lung bases are normal, cardiac normal, no pericardial effusion, spleen pancreas, gallbladder appears intact,, common bile duct is not dilated which failed to reveal any appendicitis, lactic acid is elevated, UCG is negative, pelvic exam was performed by the emergency room, with no acute findings, cultures were sent for gonorrhea Chlamydia, Trichomonas negative. Transvaginal ultrasound fails to reveal any acute findings, she was tachycardic on ER entry, with significant low blood pressures with 80 systolic, multiple fluid boluses has been patient just finished her menstrual cycle t2 days ago, she does have urine WBC of 23, RBC of 182, C. diff was sent negative, Trichomonas antigen negative, she has 1+ ketones and urine, specific gravity 1.033. Creatinine 1.45, CO2 of 18 liver function test is normal she has significant tenderness in the lower abdomen on examination, IV antibiotics Flagyl and Levaquin started, 03/26:temperature max 100.0, heart rate 99, blood pressure 92/56, pulse ox 90% on room air. Repeat blood work reveals sodium 133, potassium 3.9, chloride 110, CO2 16, BUN 14 and creatinine 0.59. Liver function tests are normal. A Chin states she still has some abdominal pain and complains of nausea not as bad as yesterday. C. difficile toxin was negative. Repeat blood work reveals WBC 12.0, hemoglobin 10.4, platelet count 163. Sodium 133, potassium 3.9, chloride 110, CO2 16, BUN 14 and creatinine 0.59. Liver function tests were normal. Patient's bicarb drip was increased and repeat abdominal x-rays ordered for tomorrow morning. Repeat blood work has been ordered for tomorrow as well. 03/27: Mr. max 100.1, heart rate 88, blood pressure 94/58, pulse ox 98% on room air. Repeat blood work reveals sodium 136, potassium 3.1 and will be replaced, chloride 105, CO2 24, BUN 9 and creatinine 0.59. Liver function tests within normal limits. Albumin 2.8. Patient is currently on IV antibiotics in the form of Flagyl and Levaquin. She is continued on bicarb drip. Patient continues to have diarrhea. She states she had 4 episodes during the night. She also has lower abdominal pain. Patient's Chlamydia and gonorrhea test came back positive and this was discussed with the patient. Zithromax 1 g now ordered and patient has been instructed to have a recheck done in 2 weeks. Patient also advised the boyfriend needs to be treated. Stool culture and cervical cultures are in progress. REVIEW OF SYSTEMS Constitutional: No fever, no chills, no night sweats. No weight change. No weakness, fatigue or lethargy. No daytime sleepiness. EENT: No headache. No blurred vision or double vision, no loss of vision. No loss of Hearing, no ringing in the ears, no dizziness. No nasal drainage or congestion. No epistaxis. No sore throat. Lungs: No shortness of breath, cough, no sputum production. No wheezing. Cardiovascular: No chest pain, no lower extremity edema. No palpitations. No paroxysmal nocturnal dyspnea. No orthopnea. No lightheadedness or dizziness. No syncopal episodes. Abdominal: Reports abdominal pain. Reports nausea, vomiting. Reports diarrhea. No constipation. No bloody or tarry stools. Reports loss of appetite. Genitourinary: No dysuria, increased frequency, urgency. No urinary retention. Musculoskeletal: No myalgias. No muscle weakness, no gait dysfunction, no frequent falls. No back pain. No neck pain. Integumentary: No wounds, no lesions. No rash or pruritus. No unusual bruising. No change in hair or nails. Neurologic: No aphasia. No facial droop. No change in mentation. No head injury. No headache. No paralysis. No paresthesia. Psychiatric: No depression. No anxiety. No mood swings. Endocrine: No abnormal blood sugars. No weight change. No excessive sweating or thirst. No cold intolerance. PHYSICAL EXAMINATION Gen: This is 21-year-old female patient resting in bed and appears to be comf ortable at rest. HEENT: Head is atraumatic, normocephalic. Pupils equal, round. Sclerae is anicteric. NECK: Supple. No JVD. No lymphadenopathy. No thyromegaly. LUNGS: Clear to auscultation. No wheezes or rhonchi. No intercostal retractions. HEART: Regular rate and rhythm. No murmur. ABDOMEN: Soft. Bowel sounds are present. No masses. Generalized tenderness. EXTREMITIES: No pedal edema. No calf tenderness. NEUROLOGICAL: Patient is awake, alert and oriented x3. Cranial nerves 2 through 12 are grossly intact. ASSESSMENT AND PLAN 1. Abdominal pain with significant diarrhea, suspect acute gastroenteritis, cannot rule out colitis, no bowel obstruction on CT, no appendiceal signs , fluid for hydration, patient has hypovolemic shock, with low blood pressures, aggressive fluid hydration, multiple boluses were given the ER, where giving another bolus of 500 today, H pylori pending, stool culture pending, C. diff negative. Check for celiac panel, continue full liquid diet dairy free. 2. Pelvic pain, negative UCG, pending GC chlamydia, trichomonas negative 3. Hypovolemic shock, with new syncope, aggressive fluid hydration, 4. Acute kidney injury, with underlying CK D stage I suspected, baseline from January 2021 was 0.62 5. Metabolic acidosis, sodium bicarb, increased to 3 Amp D5 W, to run at 100 mL an hour 1 bag 6. Chlamydia and gonorrhea infections. Patient placed on Zithromax 1 g oral once, follow-up in 2 weeks, boyfriend to be treated. 7. GI prophylaxis with Pepcid DISCHARGE PLAN Home. Impression and plan of care have been directed as dictated by the signing physician. Shilpa Sanhcez nurse practitioner acting as scribe for signing physician. Objective - Vital Signs Vital signs: Vital Signs Temp 100.1 F H 03/27/21 07:00 Pulse 88 03/27/21 07:46 Resp 14 03/27/21 07:46 BP 94/58 03/27/21 07:00 Pulse Ox 98 03/27/21 07:00 Intake & Output 03/26/21 03/27/21 03/27/21 18:59 06:59 18:59 Intake Total 100 Balance 100 Intake: Oral 100 Other: Voiding Method Toilet Toilet Toilet # Voids 1 2 2 # Bowel Movements 1 - Labs CBC & Chem 7: 03/27/21 04:53 03/27/21 04:53 Labs: Abnormal Lab Results - Last 24 Hours (Table) 03/24/21 03/26/21 03/26/21 Range/Units 16:07 04:55 04:55 WBC 12.03 H (4.50-10.00) X 10*3/uL RBC 3.41 L (4.10-5.20) X 10*6/uL Hgb 10.4 L (12.0-15.0) g/dL Hct 31.3 L (37.2-46.3) % Immature Gran # 0.19 H (0.00-0.04) X 10*3/uL Neutrophils # 9.92 H (1.80-7.70) X 10*3/uL Eosinophils # 0.37 H (0.04-0.35) X 10*3/uL Sodium 132 L (135-145) mmol/L Potassium (3.5-5.1) mmol/L Carbon Dioxide 16.6 L (21.6-31.8) mmol/L BUN/Creatinine Ratio 25.00 H (12.00-20.00) Ratio Calcium 8.2 L (8.7-10.3) mg/dL Total Protein 5.2 L (6.2-8.2) g/dL Albumin 3.40 L (3.80-4.90) g/dL Chlamydia DNA (PCR) Positive A (Neg,Equiv) N.gonorrhoeae DNA Probe Positive A (Neg,Equiv) 03/27/21 Range/Units 04:53 WBC (4.50-10.00) X 10*3/uL RBC (4.10-5.20) X 10*6/uL Hgb (12.0-15.0) g/dL Hct (37.2-46.3) % Immature Gran # (0.00-0.04) X 10*3/uL Neutrophils # (1.80-7.70) X 10*3/uL Eosinophils # (0.04-0.35) X 10*3/uL Sodium 136 L (135-145) mmol/L Potassium 3.1 L (3.5-5.1) mmol/L Carbon Dioxide (21.6-31.8) mmol/L BUN/Creatinine Ratio (12.00-20.00) Ratio Calcium (8.7-10.3) mg/dL Total Protein 5.0 L (6.2-8.2) g/dL Albumin 2.8 L (3.80-4.90) g/dL Chlamydia DNA (PCR) (Neg,Equiv) N.gonorrhoeae DNA Probe (Neg,Equiv) Microbiology - Last 24 Hours (Table) 03/25/21 09:05 Urine Culture - Final Urine,Voided 03/25/21 18:00 Stool Culture - Preliminary Stool
[2021-03-27] MEDS: LEVOFLOXACIN 500MG-D5W PMX 500 MG in DEXTROSE/WATER 1 100ML.BAG IVPB SCH (14:51)
[2021-03-27] MEDS: ACETAMINOPHEN TAB 325 MG TAB PO PRN (21:31)
[2021-03-28 07:14] VITALS: BP 108/69; PULSE 84; RESP 17; TEMP 98.2
[2021-03-28] MEDS: SODIUM CHLORIDE 0.9% 1,000 ML IV SCH (07:26)
[2021-03-28] MEDS: metroNIDAZOLE-NS PMX 500 MG in SALINE 1 100ML.BAG IVPB SCH (07:56)
[2021-03-28] MEDS: DEXTROSE 5% IN WATER 1,000 ML with SODIUM BICARB (1 MEQ/ML) 150 ML IV SCH (07:59)
--- NOTE | 2021-03-28 09:20 | P.DS ---
Providers Date of admission: 03/26/21 09:11 Expected date of discharge: 03/28/21 Attending physician: Eugenai Somers Primary care physician: Parveen Loza [place] Hospital Course: HISTORY OF PRESENT ILLNESS This is a 21-year-old lady, presents to emergency room, with complaints of lower abdominal pain, of 2 days' duration, accompanied by significant diarrhea, over 10 times in the past 24 hours, pain is on both right lower quadrant lower quadrant left lower quadrant area, suprapubic area. This is with nausea vomiting, and myalgia. No fever, no chills, no recent sick contacts, no foreign travels, patient denies any cough or dorsalis for this, no recent techniques, however upon arrival to the emergency room, she had a near syncopal event, once. She was assessed in the emergency room, and was near syncope dehydrated,. As she also stated, she has bowel movements postprandial which is routine for her, no history of IBS, no history of celiac disease, In the emergency room, she had CAT scan of the abdomen and pelvis, there is fluid down to the rectum consistent with diarrhea, there is no retroperitoneal adenopathy, ureters are not dilated, inguinal hernia, no adrenal mass, lung bases are normal, cardiac normal, no pericardial effusion, spleen pancreas, gallbladder appears intact,, common bile duct is not dilated which failed to reveal any appendicitis, lactic acid is elevated, UCG is negative, pelvic exam was performed by the emergency room, with no acute findings, cultures were sent for gonorrhea Chlamydia, Trichomonas negative. Transvaginal ultrasound fails to reveal any acute findings, she was tachycardic on ER entry, with significant low blood pressures with 80 systolic, multiple fluid boluses has been patient just finished her menstrual cycle t2 days ago, she does have urine WBC of 23, RBC of 182, C. diff was sent negative, Trichomonas antigen negative, she has 1+ ketones and urine, specific gravity 1.033. Creatinine 1.45, CO2 of 18 liver function test is normal she has significant tenderness in the lower abdomen on examination, IV antibiotics Flagyl and Levaquin started, 03/26:temperature max 100.0, heart rate 99, blood pressure 92/56, pulse ox 90% on room air. Repeat blood work reveals sodium 133, potassium 3.9, chloride 110, CO2 16, BUN 14 and creatinine 0.59. Liver function tests are normal. A Chin states she still has some abdominal pain and complains of nausea not as bad as yesterday. C. difficile toxin was negative. Repeat blood work reveals WBC 12.0, hemoglobin 10.4, platelet count 163. Sodium 133, potassium 3.9, chloride 110, CO2 16, BUN 14 and creatinine 0.59. Liver function tests were normal. Patient's bicarb drip was increased and repeat abdominal x-rays ordered for tomorrow morning. Repeat blood work has been ordered for tomorrow as well. 03/27: Mr. macias 100.1, heart rate 88, blood pressure 94/58, pulse ox 98% on room air. Repeat blood work reveals sodium 136, potassium 3.1 and will be replaced, chloride 105, CO2 24, BUN 9 and creatinine 0.59. Liver function tests within normal limits. Albumin 2.8. Patient is currently on IV antibiotics in the form of Flagyl and Levaquin. She is continued on bicarb drip. Patient continues to have diarrhea. She states she had 4 episodes during the night. She also has lower abdominal pain. Patient's Chlamydia and gonorrhea test came back positive and this was discussed with the patient. Zithromax 1 g now ordered and patient has been instructed to have a recheck done in 2 weeks. Patient also advised the boyfriend needs to be treated. Stool culture and cervical cultures are in progress. 03/28: Patient states in last 24 hours she's had 5 bowel movements. Patient is eating adequately and abdominal pain is improving. We will plan on discharging the patient to continue course of Flagyl and ciprofloxacin for 7 more days. One dose of ceftriaxone 1 g ordered. Patient has been instructed to follow up with her physician for recheck and also that her partner needs to be treated for STD. Patient will be discharged home today in stable condition. ASSESSMENT AND PLAN 1. Abdominal pain with significant diarrhea, suspect acute gastroenteritis, cannot rule out colitis 2. Pelvic pain, secondary to STD with gonorrhea and chlamydia 3. Hypovolemic shock, with new syncope 4. Acute kidney injury, with underlying CKD stage I 5. Metabolic acidosis DISCHARGE PLAN Home. Impression and plan of care have been directed as dictated by the signing physician. Shilpa Sanchez nurse practitioner acting as scribe for signing physician. Patient Condition at Discharge: Good Plan - Discharge Summary Discharge Rx Participant: No New Discharge Prescriptions: New Ciprofloxacin HCl [Cipro] 500 mg PO BID 7 Days #14 tab metroNIDAZOLE [Flagyl] 500 mg PO TID #21 tab Acetaminophen Tab [Tylenol] 650 mg PO Q6HR PRN tab PRN Reason: Mild Pain Or Fever > 100.5 Cholestyramine (with Sugar) [Questran Packet] 4 gm PO BID #30 packet Discharge Medication List Acetaminophen Tab [Tylenol] 650 mg PO Q6HR PRN tab 03/28/21 [Rx] Cholestyramine (with Sugar) [Questran Packet] 4 gm PO BID #30 packet 03/28/21 [Rx] Ciprofloxacin HCl [Cipro] 500 mg PO BID 7 Days #14 tab 03/28/21 [Rx] metroNIDAZOLE [Flagyl] 500 mg PO TID #21 tab 03/28/21 [Rx] Follow up Appointment(s)/Referral(s): Parveen Wiggins MD [Primary Care Provider] - 1 Week Patient Instructions/Handouts: Dehydration (DC), Acute Kidney Injury (DC), Acute Nausea and Vomiting (DC), Acute Abdominal Pain (DC) Activity/Diet/Wound Care/Special Instructions: Have sexual partner treated for STD. Discharge Disposition: HOME SELF-CARE
[2021-03-28 09:23] LABS: ALT 6 U/L (4-34); AST 15 U/L (14-36); African American GFR (CKD) >90 (>60 ml/min/1.73 sqM); Albumin 2.5 g/dL (3.5-5.0); Albumin/Globulin Ratio 1.1; Alkaline Phosphatase 51 U/L (38-126); Anion Gap 6 mmol/L; Blood Urea Nitrogen 5 mg/dL (7-17); Calcium 8.3 mg/dL (8.4-10.2); Carbon Dioxide 31 mmol/L (22-30); Chloride 101 mmol/L (98-107); Globulin 2.2 g/dL; Glucose 95 mg/dL (74-99); Non-African American GFR(CKD) >90 (>60 ml/min/1.73 sqM); Potassium 3.5 mmol/L (3.5-5.1); Sodium 138 mmol/L (137-145); Total Bilirubin 0.3 mg/dL (0.2-1.3); Total Protein 4.7 g/dL (6.3-8.2)
[2021-03-28] MEDS ORDERED: cefTRIAXone 1,000 MG VIAL (IM USE) IM STA (09:34)
[2021-03-28] MEDS: CHOLESTYRAMINE (WITH SUGAR) 4 GM PACKET PO SCH (11:44)
[2021-03-29 07:46] LABS: Calprotectin, Stool <27.1 mcg/g (<50)
== END 2021-03-28 11:59 | disposition home or self-care (01) | DRG 391 ==
LOC: EC 10:29 → 6NMEDSUR 17:56 → OBSVTOIN 03-26 09:11 → 6NMEDSUR 03-27 19:38
PROVIDERS: ADMIT Family Medicine; ATTEND Family Medicine
DX: K52.9 Noninfective gastroenteritis and colitis, unspecified (principal); R57.1 Hypovolemic shock; N17.9 Acute kidney failure, unspecified; E87.2 Acidosis; N18.1 Chronic kidney disease, stage 1; F41.9 Anxiety disorder, unspecified; E86.0 Dehydration; K21.9 Gastro-esophageal reflux disease without esophagitis; G43.909 Migraine, unspecified, not intractable, without status migrainosus; L40.9 Psoriasis, unspecified
CPT/HCPCS: 36415; 74019; 74177; 76830; 80048; 80053; 81001; 81025; 82150; 83516; 83605; 83630; 83690; 83993; 85025; 85027; 87045; 87046; 87070; 87086; 87324; 87338; 87491; 87591; 87808; 93975; 96361; 96374; 96375; 99285

== ENCOUNTER → 2022-02-27 | Outpatient (CLI) | payer OTHER ==
--- NOTE | 2022-02-28 10:27 | USB ---
Reason for Exam: Clinical finding. Technique: Method: Targeted. Findings: The upper outer quadrant of both breasts, the axilla of both breasts and the retroareolar of both breasts were scanned. No findings, patient does have bilateral nipple piercings No suspicious cystic or solid masses are evident. No abnormality to account for the patient's pelvic wall regions are evident. Clinical management recommended.No suspicious cystic or solid masses are evident. No abnormality to account for the patient's palpable abnormalities are evident. Clinical management recommended. Overall Assessment: Negative, BI-RAD 1 Management: Screening Mammogram of both breasts at age 41. A clinical breast exam by your physician is recommended on an annual basis and results should be correlated with mammographic findings. Patient should continue monthly self breast exam. Clinical management of any palpable amount disease. Electronically signed and approved by: Woodrow Gonzalez D.O. Radiologis
== END | disposition home or self-care (01) ==
LOC: RADUSWWP 15:15
PROVIDERS: ATTEND Obstetrics & Gynecology
DX: R92.8 Other abnormal and inconclusive findings on diagnostic imaging of breast (principal)

== ENCOUNTER → 2022-03-07 | Outpatient (CLI) | payer OTHER ==
--- NOTE | 2022-03-07 15:56 | XR ---
EXAMINATION TYPE: XR ankle complete RT DATE OF EXAM: 03/07/2022 COMPARISON: NONE HISTORY: Pain TECHNIQUE: Frontal, lateral and oblique images of the right ankle are obtained. COMPARISON: None. FINDINGS: There is no acute fracture/dislocation evident. The joint spaces appear within normal garcia its. The overlying soft tissue appears unremarkable. Osteotomy changes of the os calcis with 2 fixat ion screws in place. Alignment appears near anatomic. IMPRESSION: There is no acute fracture or dislocation seen.
--- NOTE | 2022-03-07 15:57 | XR ---
EXAMINATION TYPE: XR foot complete RT DATE OF EXAM: 03/07/2022 CLINICAL HISTORY: pain TECHNIQUE: Frontal, lateral and oblique images of the right foot are obtained. COMPARISON: None. FINDINGS: There is no acute fracture/dislocation evident. The joint spaces appear within normal garcia its. The overlying soft tissue appears unremarkable. IMPRESSION: There is no acute fracture or dislocation. ICD 10 NO FRACTURE, INITIAL EVALUATION
== END | disposition home or self-care (01) ==
LOC: RADXRMAIN 15:15
PROVIDERS: ATTEND Orthopaedic Surgery Foot and Ankle Surgery
DX: M25.571 Pain in right ankle and joints of right foot (principal); M79.671 Pain in right foot

== ENCOUNTER 2022-05-30 22:10 | Observation (INO) | payer OTHER ==
[2022-05-30 22:49] LABS: Basophils # (A) 0.1 k/uL (0-0.2); Basophils % (A) 1 %; Eosinophils # (A) 0.2 k/uL (0-0.7); Eosinophils % (A) 2 %; HCT 38.9 % (34.0-46.0); HGB 12.8 gm/dL (11.4-16.0); Lymphocytes # (A) 2.6 k/uL (1.0-4.8); Lymphocytes % (A) 38 %; MCH 29.7 pg (25.0-35.0); MCV 90.3 fL (80.0-100.0); Mean Platelet Volume 8.3; Monocytes # (A) 0.3 k/uL (0-1.0); Monocytes % (A) 4 %; Neutrophils # (A) 3.8 k/uL (1.3-7.7); Neutrophils % (A) 54 %; Platelet Count 206 k/uL (150-450); RBC 4.31 m/uL (3.80-5.40); RDW 12.9 % (11.5-15.5)
[2022-05-30 23:03] LABS: ALT 17 U/L (4-34); AST 27 U/L (14-36); African American GFR (CKD) >90 (>60 ml/min/1.73 sqM); Albumin 4.6 g/dL (3.5-5.0); Alkaline Phosphatase 59 U/L (38-126); Anion Gap 16 mmol/L; Blood Urea Nitrogen 14 mg/dL (7-17); Calcium 9.4 mg/dL (8.4-10.2); Carbon Dioxide 18 mmol/L (22-30); Chloride 105 mmol/L (98-107); Glucose 144 mg/dL (74-99); Non-African American GFR(CKD) >90 (>60 ml/min/1.73 sqM); Potassium 3.2 mmol/L (3.5-5.1); Sodium 139 mmol/L (137-145); Total Bilirubin 0.3 mg/dL (0.2-1.3); Total Protein 6.9 g/dL (6.3-8.2)
[2022-05-30 23:29] LABS: Appearance,Urine Cloudy (Clear); Bacteria,Urine Many /hpf; Bilirubin,Urine Negative (Negative); Blood,Urine Trace (Negative); Color,Urine Colorless; Glucose,Urine (UA) Negative (Negative); Ketones,Urine Negative (Negative); Leukocyte Esterase,Urine Trace (Negative); Mucus,Urine Rare /hpf; Nitrite,Urine Negative (Negative); PH, Urine 5.5 (5.0-8.0); Protein,Urine Negative (Negative); RBC,Urine 1 /hpf (0-5); Specific Gravity,Urine 1.003 (1.001-1.035); Squamous Epithelial Cell,Urine 2 /hpf (0-4); Urobilinogen,Urine <2.0 mg/dL (<2.0); WBC,Urine 7 /hpf (0-5)
[2022-05-31] MEDS ORDERED: POTASSIUM BICARBONATE/CIT AC 20 MEQ TABLET.EFF PO ONE (01:40)
[2022-05-31] MEDS ORDERED: SODIUM CHLORIDE 0.9% 1,000 ML IV STA ×2 (01:40)
[2022-05-31] MEDS ORDERED: MORPHINE SULFATE 2 MG/ML SYRINGE IVP STA (01:40)
--- NOTE | 2022-05-31 01:43 | ED ---
GI Bleed HPI - General Chief complaint: GI Bleed Stated complaint: Rectal bleed Time Seen by Provider: 05/31/22 00:51 Source: patient, family, RN notes reviewed, old records reviewed, Caregiver Mode of arrival: wheelchair Limitations: no limitations - History of Present Illness Initial comments: This is a 22-year-old female presents today to the ER. Patient presents today for evaluation of fall of bleeding rectal bleeding. Blood with stool now j ust blood, patient is wearing a pad with minimal bleeding. Patient did wear a tampon that had no blood on it. She feels lightheaded dizzy and weak feels like she may pass out. No history of bleeding no history of GI bleed no history of bleeding issues. Patient does not have significantly LOC bleeding whenever she has a cut or injury but she does have significantly abnormal periods. MD complaint: blood on toilet paper, blood streaked stool, gross hematochezia -: days(s) (1) Radiation: none Severity scale (1-10): 5 Quality: sharp Consistency: constant Improves with: none Worsens with: none Context: near syncope Associated Symptoms: abdominal pain, nausea, loss of appetite, shortness of breath, syncope (Near syncope), weakness Treatments Prior to Arrival: none - Related Data Previous Rx's Medication Instructions Recorded Acetaminophen Tab [Tylenol] 650 mg PO Q6HR PRN tab 03/28/21 Cholestyramine (with Sugar) 4 gm PO BID #30 packet 03/28/21 [Questran Packet] Ciprofloxacin HCl [Cipro] 500 mg PO BID 7 Days #14 tab 03/28/21 metroNIDAZOLE [Flagyl] 500 mg PO TID #21 tab 03/28/21 Allergies Allergy/AdvReac Type Severity Reaction Status Date / Time No Known Allergies Allergy Verified 05/30/22 22:22 Review of Systems ROS Statement: Those systems with pertinent positive or pertinent negative responses have been documented in the HPI. ROS Other: All systems not noted in ROS Statement are negative. Past Medical History Past Medical History: GERD/Reflux, Skin Disorder Additional Past Medical History / Comment(s): migraines, psoriasis, History of Any Multi-Drug Resistant Organisms: None Reported Past Surgical History: Adenoidectomy, Ear Surgery, Tonsillectomy Past Anesthesia/Blood Transfusion Reactions: No Reported Reaction Past Psychological History: Anxiety Smoking Status: Vaper Past Alcohol Use History: None Reported Past Drug Use History: None Reported - Past Family History Mother History Unknown: Yes (IBS) Family Medical History: CVA/TIA Father Family Medical History: Unable to Obtain Brother(s) Family Medical History: No Reported History General Exam Limitations: no limitations General appearance: alert, in no apparent distress Head exam: Present: atraumatic, normocephalic, normal inspection Eye exam: Present: normal appearance, PERRL, EOMI. Absent: scleral icterus, conjunctival injection, periorbital swelling ENT exam: Present: normal exam, mucous membranes moist Neck exam: Present: normal inspection. Absent: tenderness, meningismus, lymphadenopathy Respiratory exam: Present: normal lung sounds bilaterally. Absent: respiratory distress, wheezes, rales, rhonchi, stridor Cardiovascular Exam: Present: regular rate, normal rhythm, normal heart sounds. Absent: systolic murmur, diastolic murmur, rubs, gallop, clicks GI/Abdominal exam: Present: soft, normal bowel sounds. Absent: distended, tenderness, guarding, rebound, rigid Extremities exam: Present: normal inspection, full ROM, normal capillary refill. Absent: tenderness, pedal edema, joint swelling, calf tenderness Back exam: Present: normal inspection Neurological exam: Present: alert, oriented X3, CN II-XII intact Psychiatric exam: Present: normal affect, normal mood Skin exam: Present: warm, dry, intact, normal color. Absent: rash Course Vital Signs 05/30/22 05/31/22 22:18 01:11 Temperature 98 F 99.1 F Pulse Rate 79 73 Respiratory 22 14 Rate Blood Pressure 122/89 116/75 O2 Sat by Pulse 99 99 Oximetry - Reevaluation(s) Reevaluation #1: 05/31/22 02:04 Medical record is reviewed Reevaluation #2: 05/31/22 02:04 Patient's pain is improved symptoms improved Reevaluation #3: 05/31/22 03:55 Patient informed results and questions answered - Consultations Consultation #1: Spoke with [facility] agreed to admission Medical Decision Making - Medical Decision Making 22 female persistent GI bleed having to wear a pad. Patient will be admitted for recheck hemoglobin and surgical consultation, patient also abdominal pain which is improved CT head and pelvis negative for acute disease - Lab Data Result diagrams: 05/30/22 22:30 05/30/22 22:30 Lab Results 05/30/22 05/30/22 05/30/22 Range/Units 22:30 22:30 22:30 WBC 7.0 (3.8-10.6) k/uL RBC 4.31 (3.80-5.40) m/uL Hgb 12.8 (11.4-16.0) gm/dL Hct 38.9 (34.0-46.0) % MCV 90.3 (80.0-100.0) fL MCH 29.7 (25.0-35.0) pg MCHC 33.0 (31.0-37.0) g/dL RDW 12.9 (11.5-15.5) % Plt Count 206 (150-450) k/uL MPV 8.3 Neutrophils % 54 % Lymphocytes % 38 % Monocytes % 4 % Eosinophils % 2 % Basophils % 1 % Neutrophils # 3.8 (1.3-7.7) k/uL Lymphocytes # 2.6 (1.0-4.8) k/uL Monocytes # 0.3 (0-1.0) k/uL Eosinophils # 0.2 (0-0.7) k/uL Basophils # 0.1 (0-0.2) k/uL APTT 23.8 (22.0-30.0) sec Sodium 139 (137-145) mmol/L Potassium 3.2 L (3.5-5.1) mmol/L Chloride 105 (98-107) mmol/L Carbon Dioxide 18 L (22-30) mmol/L Anion Gap 16 mmol/L BUN 14 (7-17) mg/dL Creatinine 0.64 (0.52-1.04) mg/dL Est GFR (CKD-EPI)AfAm >90 (>60 ml/min/1.73 sqM) Est GFR (CKD-EPI)NonAf >90 (>60 ml/min/1.73 sqM) Glucose 144 H (74-99) mg/dL Calcium 9.4 (8.4-10.2) mg/dL Magnesium (1.6-2.3) mg/dL Total Bilirubin 0.3 (0.2-1.3) mg/dL AST 27 (14-36) U/L ALT 17 (4-34) U/L Alkaline Phosphatase 59 (38-126) U/L Troponin I (0.000-0.034) ng/mL Total Protein 6.9 (6.3-8.2) g/dL Albumin 4.6 (3.5-5.0) g/dL Urine Color Urine Appearance (Clear) Urine pH (5.0-8.0) Ur Specific [place] (1.001-1.035) Urine Protein (Negative) Urine Glucose (UA) (Negative) Urine Ketones (Negative) Urine Blood (Negative) Urine Nitrite (Negative) Urine Bilirubin (Negative) Urine Urobilinogen (<2.0) mg/dL Ur Leukocyte Esterase (Negative) Urine RBC (0-5) /hpf Urine WBC (0-5) /hpf Ur Squamous Epith Cells (0-4) /hpf Urine Bacteria (None) /hpf Urine Mucus (None) /hpf Urine HCG, Qual (Not Detectd) Blood Type Blood Type Recheck Bld Type Recheck Status Antibody Screen Spec Expiration Date 05/30/22 05/30/22 05/30/22 Range/Units 22:30 22:30 22:59 WBC (3.8-10.6) k/uL RBC (3.80-5.40) m/uL Hgb (11.4-16.0) gm/dL Hct (34.0-46.0) % MCV (80.0-100.0) fL MCH (25.0-35.0) pg MCHC (31.0-37.0) g/dL RDW (11.5-15.5) % Plt Count (150-450) k/uL MPV Neutrophils % % Lymphocytes % % Monocytes % % Eosinophils % % Basophils % % Neutrophils # (1.3-7.7) k/uL Lymphocytes # (1.0-4.8) k/uL Monocytes # (0-1.0) k/uL Eosinophils # (0-0.7) k/uL Basophils # (0-0.2) k/uL APTT (22.0-30.0) sec Sodium (137-145) mmol/L Potassium (3.5-5.1) mmol/L Chloride (98-107) mmol/L Carbon Dioxide (22-30) mmol/L Anion Gap mmol/L BUN (7-17) mg/dL Creatinine (0.52-1.04) mg/dL Est GFR (CKD-EPI)AfAm (>60 ml/min/1.73 sqM) Est GFR (CKD-EPI)NonAf (>60 ml/min/1.73 sqM) Glucose (74-99) mg/dL Calcium (8.4-10.2) mg/dL Magnesium (1.6-2.3) mg/dL Total Bilirubin (0.2-1.3) mg/dL AST (14-36) U/L ALT (4-34) U/L Alkaline Phosphatase (38-126) U/L Troponin I <0.012 (0.000-0.034) ng/mL Total Protein (6.3-8.2) g/dL Albumin (3.5-5.0) g/dL Urine Color Colorless Urine Appearance Cloudy H (Clear) Urine pH 5.5 (5.0-8.0) Ur Specific [place] 1.003 (1.001-1.035) Urine Protein Negative (Negative) Urine Glucose (UA) Negative (Negative) Urine Ketones Negative (Negative) Urine Blood Trace H (Negative) Urine Nitrite Negative (Negative) Urine Bilirubin Negative (Negative) Urine Urobilinogen <2.0 (<2.0) mg/dL Ur Leukocyte Esterase Trace H (Negative) Urine RBC 1 (0-5) /hpf Urine WBC 7 H (0-5) /hpf Ur Squamous Epith Cells 2 (0-4) /hpf Urine Bacteria Many H (None) /hpf Urine Mucus Rare H (None) /hpf Urine HCG, Qual (Not Detectd) Blood Type O Positive Blood Type Recheck O Pos Bld Type Recheck Status No Antibody Screen NEGATIVE Spec Expiration Date 06/02/2022232905/31/22 05/31/22 Range/Units 01:43 01:43 WBC (3.8-10.6) k/uL RBC (3.80-5.40) m/uL Hgb (11.4-16.0) gm/dL Hct (34.0-46.0) % MCV (80.0-100.0) fL MCH (25.0-35.0) pg MCHC (31.0-37.0) g/dL RDW (11.5-15.5) % Plt Count (150-450) k/uL MPV Neutrophils % % Lymphocytes % % Monocytes % % Eosinophils % % Basophils % % Neutrophils # (1.3-7.7) k/uL Lymphocytes # (1.0-4.8) k/uL Monocytes # (0-1.0) k/uL Eosinophils # (0-0.7) k/uL Basophils # (0-0.2) k/uL APTT (22.0-30.0) sec Sodium (137-145) mmol/L Potassium (3.5-5.1) mmol/L Chloride (98-107) mmol/L Carbon Dioxide (22-30) mmol/L Anion Gap mmol/L BUN (7-17) mg/dL Creatinine (0.52-1.04) mg/dL Est GFR (CKD-EPI)AfAm (>60 ml/min/1.73 sqM) Est GFR (CKD-EPI)NonAf (>60 ml/min/1.73 sqM) Glucose (74-99) mg/dL Calcium (8.4-10.2) mg/dL Magnesium 1.8 (1.6-2.3) mg/dL Total Bilirubin (0.2-1.3) mg/dL AST (14-36) U/L ALT (4-34) U/L Alkaline Phosphatase (38-126) U/L Troponin I (0.000-0.034) ng/mL Total Protein (6.3-8.2) g/dL Albumin (3.5-5.0) g/dL Urine Color Urine Appearance (Clear) Urine pH (5.0-8.0) Ur Specific [place] (1.001-1.035) Urine Protein (Negative) Urine Glucose (UA) (Negative) Urine Ketones (Negative) Urine Blood (Negative) Urine Nitrite (Negative) Urine Bilirubin (Negative) Urine Urobilinogen (<2.0) mg/dL Ur Leukocyte Esterase (Negative) Urine RBC (0-5) /hpf Urine WBC (0-5) /hpf Ur Squamous Epith Cells (0-4) /hpf Urine Bacteria (None) /hpf Urine Mucus (None) /hpf Urine HCG, Qual Not Detected (Not Detectd) Blood Type Blood Type Recheck Bld Type Recheck Status Antibody Screen Spec Expiration Date - Radiology Data Radiology results: report reviewed (CT head and pelvis is negative for acute disease), image reviewed Disposition Clinical Impression: Gastrointestinal hemorrhage Disposition: ADMITTED IP TO THIS HOSP Condition: Undetermined Is patient prescribed a controlled substance at d/c from ED?: No Time of Disposition: 03:45
--- NOTE | 2022-05-31 02:35 | CT ---
EXAMINATION TYPE: CT abdomen pelvis w con DATE OF EXAM: 05/31/2022 COMPARISON: None available HISTORY: bleeding from rectum. CT DLP: 446.4 mGycm Automated exposure control for dose reduction was used. CONTRAST: Performed with IV Contrast, patient injected with 100 mL of Isovue 300. Images obtained from the diaphragm to the floor the pelvis with IV contrast. Lung bases are clear. No pleural effusion. Heart size is normal. No pericardial effusion. Liver splee n and stomach pancreas appear intact. The bile duct are not dilated. Gallbladder appears normal. Ther e is no adrenal mass. Kidneys show satisfactory contrast opacification. There is no hydronephrosis. U reters are not dilated. No retroperitoneal adenopathy. The bladder distends smoothly. No inguinal her jaylene. Bladder has normal size. No pelvic mass. There is small amount of low-density free fluid in the pelvis. Appendix is posterior and appears normal. There is no mesenteric edema. No ascites or free air. No bowel obstruction. No intestinal wall thicke vicky. No evidence of rectal mass. The lumbar vertebrae have normal alignment. Posterior element are intact. No compression fracture. Navid ny pelvis is intact. The hip joints are intact. IMPRESSION: There is small amount of low-density free fluid in the pelvis. Normal appendix.
[2022-05-31] MEDS ORDERED: NALOXONE 0.4 MG/ML 1 ML VIAL IV PRN (03:31)
[2022-05-31] MEDS: PANTOPRAZOLE 40 MG/10 ML VIAL IV SCH (08:20)
--- NOTE | 2022-05-31 09:16 | P.GSCN ---
History of Present Illness Consult date: 05/31/22 Reason for Consult: GI bleed History of present illness: This a 22-year-old female who was admitted through the emergency room with complaints of rectal bleeding. Patient states she's not had any further rectal bleeding since to the hospital. She denies any significant abdominal pain. She's never had any evidence of GI bleed before. Past Medical History Past Medical History: GERD/Reflux, Skin Disorder Additional Past Medical History / Comment(s): migraines, psoriasis History of Any Multi-Drug Resistant Organisms: None Reported Past Surgical History: Adenoidectomy, Ear Surgery, Orthopedic Surgery, Tonsillectomy Additional Past Surgical History / Comment(s): Right ankle/tendon surgery with hardware and removal of hardware. Past Anesthesia/Blood Transfusion Reactions: No Reported Reaction Past Psychological History: Anxiety Smoking Status: Vaper Past Alcohol Use History: None Reported Past Drug Use History: None Reported - Past Family History Mother History Unknown: Yes Family Medical History: CVA/TIA Father Family Medical History: Unable to Obtain Brother(s) Family Medical History: No Reported History Medications and Allergies Home Medications Medication Instructions Recorded Confirmed Type Acetaminophen Tab [Tylenol] 650 mg PO Q6HR PRN tab 03/28/21 Rx Cholestyramine (with Sugar) 4 gm PO BID #30 packet 03/28/21 Rx [Questran Packet] Ciprofloxacin HCl [Cipro] 500 mg PO BID 7 Days #14 tab 03/28/21 Rx metroNIDAZOLE [Flagyl] 500 mg PO TID #21 tab 03/28/21 Rx Allergies Allergy/AdvReac Type Severity Reaction Status Date / Time No Known Allergies Allergy Verified 05/30/22 22:22 Surgical - Exam Vital Signs Temp Pulse Resp BP Pulse Ox 98 F 79 22 122/89 99 05/30/22 22:18 05/30/22 22:18 05/30/22 22:18 05/30/22 22:18 05/30/22 22:18 - General well developed, well nourished, no distress - Eyes PERRL - ENT normal pinna - Neck no masses - Respiratory normal expansion - Cardiovascular Rhythm: regular - Abdomen Abdomen: soft, non tender Results - Labs 05/30/22 22:30 05/30/22 22:30 Abnormal Lab Results - Last 24 Hours (Table) 05/30/22 05/30/22 Range/Units 22:30 22:59 Potassium 3.2 L (3.5-5.1) mmol/L Carbon Dioxide 18 L (22-30) mmol/L Glucose 144 H (74-99) mg/dL Urine Appearance Cloudy H (Clear) Urine Blood Trace H (Negative) Ur Leukocyte Esterase Trace H (Negative) Urine WBC 7 H (0-5) /hpf Urine Bacteria Many H (None) /hpf Urine Mucus Rare H (None) /hpf Diabetes panel 05/30/22 Range/Units 22:30 Sodium 139 (137-145) mmol/L Potassium 3.2 L (3.5-5.1) mmol/L Chloride 105 (98-107) mmol/L Carbon Dioxide 18 L (22-30) mmol/L BUN 14 (7-17) mg/dL Creatinine 0.64 (0.52-1.04) mg/dL Glucose 144 H (74-99) mg/dL Calcium 9.4 (8.4-10.2) mg/dL AST 27 (14-36) U/L ALT 17 (4-34) U/L Alkaline Phosphatase 59 (38-126) U/L Total Protein 6.9 (6.3-8.2) g/dL Albumin 4.6 (3.5-5.0) g/dL Calcium panel 05/30/22 Range/Units 22:30 Calcium 9.4 (8.4-10.2) mg/dL Albumin 4.6 (3.5-5.0) g/dL Pituitary panel 05/30/22 Range/Units 22:30 Sodium 139 (137-145) mmol/L Potassium 3.2 L (3.5-5.1) mmol/L Chloride 105 (98-107) mmol/L Carbon Dioxide 18 L (22-30) mmol/L BUN 14 (7-17) mg/dL Creatinine 0.64 (0.52-1.04) mg/dL Glucose 144 H (74-99) mg/dL Calcium 9.4 (8.4-10.2) mg/dL Adrenal panel 05/30/22 Range/Units 22:30 Sodium 139 (137-145) mmol/L Potassium 3.2 L (3.5-5.1) mmol/L Chloride 105 (98-107) mmol/L Carbon Dioxide 18 L (22-30) mmol/L BUN 14 (7-17) mg/dL Creatinine 0.64 (0.52-1.04) mg/dL Glucose 144 H (74-99) mg/dL Calcium 9.4 (8.4-10.2) mg/dL Total Bilirubin 0.3 (0.2-1.3) mg/dL AST 27 (14-36) U/L ALT 17 (4-34) U/L Alkaline Phosphatase 59 (38-126) U/L Total Protein 6.9 (6.3-8.2) g/dL Albumin 4.6 (3.5-5.0) g/dL Assessment and Plan Assessment: History of GI bleed. Patient will be observed. The patient will be scheduled for colonoscopy if she shows any signs of GI bleed. Her hemoglobin is currently stable.
[2022-05-31] MEDS: ONDANSETRON 4 MG/2 ML VIAL IVP PRN (11:59)
[2022-05-31] MEDS: MORPHINE SULFATE 2 MG/ML SYRINGE IVP PRN ×2 (14:39→20:48)
[2022-05-31 16:05] LABS: HCT 36.3 % (34.0-46.0); HGB 12.2 gm/dL (11.4-16.0); MCH 30.7 pg (25.0-35.0); MCHC 33.6 g/dL (31.0-37.0); MCV 91.4 fL (80.0-100.0); Mean Platelet Volume 8.3; Platelet Count 176 k/uL (150-450); RBC 3.97 m/uL (3.80-5.40); RDW 13.2 % (11.5-15.5); WBC 4.3 k/uL (3.8-10.6)
[2022-05-31 17:48] LABS: Erythrocyte Sedimentation Rate 3 mm/hr (0-20)
[2022-05-31] MEDS: DOCUSATE 100 MG CAP PO SCH (20:48)
--- NOTE | 2022-06-01 02:07 | P.HPIM ---
History of Present Illness H&P Date: 05/31/22 Chief Complaint: Bright red blood per rectum. Patient is a 22-year-old female with known history of GERD, migraine headaches and scoliosis and anxiety and also using vape presents to ER with complaints of bright red blood per rectum. Patient has been having bright blood with occasional clots for the past 2 days. Patient also felt dizzy and lightheaded and felt weak and almost passed out. Patient was also complaining of lower abdominal discomfort on admission. No fever no chills. No complaints of nausea vomiting or diarrhea. No chest pain or shortness of breath. CT of the abdomen pelvis on admission showed there is small amount of low- density free fluid in the pelvis. Normal appendix. Denies any active bleeding at this time. No prior history of GI bleed. Laboratory data showed WBC 7.0 hemoglobin 12.8 and platelets 206 Sodium 139 potassium 3.2 chloride 105 bicarb is 18 BUN 14 and creatinine 0.64 and blood sugar is 144, magnesium 1.8 Urinalysis is negative for infection. Urine test is negative. Patient states that her family members does have history of ulcerative colitis and lupus. Review of Systems Constitutional: Patient denies any fever or chills . no Generalized weakness. Abdomen: Patient denied any nausea or vomiting or abd. pain Cardiovascular: Patient denies any chest pain or short of breath no palpitat ions. Respiratory: patient denied any cough is from production. No shortness of breath Neurologic: Patient denied any numbness or tingling headache. Musculoskeletal: Patient denies any complaints of joint swelling or deformity. Skin: Negative Psychiatric: Negative Endocrine: No heat or cold intolerance. No recent weight gain. Genitourinary: No dysuria or hematuria. All other 14 point ROS negative except the above Past Medical History Past Medical History: GERD/Reflux, Skin Disorder Additional Past Medical History / Comment(s): migraines, psoriasis History of Any Multi-Drug Resistant Organisms: None Reported Past Surgical History: Adenoidectomy, Ear Surgery, Orthopedic Surgery, Tonsillectomy Additional Past Surgical History / Comment(s): Right ankle/tendon surgery with hardware and removal of hardware. Past Anesthesia/Blood Transfusion Reactions: No Reported Reaction Past Psychological History: Anxiety Smoking Status: Vaper Past Alcohol Use History: None Reported Past Drug Use History: None Reported - Past Family History Mother History Unknown: Yes Family Medical History: CVA/TIA Father Family Medical History: Unable to Obtain Brother(s) Family Medical History: No Reported History Medications and Allergies Home Medications Medication Instructions Recorded Confirmed Type Cholecalciferol [Vitamin D3 (25 25 mcg PO DAILY 05/31/22 05/31/22 History Mcg = 1000 Iu)] Citalopram Hydrobromide 20 mg PO DAILY 05/31/22 05/31/22 History [Citalopram HBr] Kariva 1 tab PO DAILY 05/31/22 05/31/22 History Pyridoxine HCl (Vitamin B6) 100 mg PO DAILY 05/31/22 05/31/22 History [Vitamin B-6] Turmeric Root Extract [Turmeric] 500 mg PO DAILY 05/31/22 05/31/22 History Allergies Allergy/AdvReac Type Severity Reaction Status Date / Time No Known Allergies Allergy Verified 05/31/22 12:47 Physical Exam Vitals: Vital Signs Temp Pulse Pulse Resp BP BP Pulse Ox 06/01/22 00:43 70 16 05/31/22 20:00 70 16 05/31/22 19:31 97.9 F 70 15 100/62 100 05/31/22 13:38 96.9 F L 66 16 102/64 97 05/31/22 07:00 98.4 F 61 18 99/57 98 05/31/22 05:06 98.3 F 70 15 99/59 99 05/31/22 04:49 80 14 101/53 98 05/31/22 03:54 89 16 119/69 99 Intake and Output 05/31/22 05/31/22 06/01/22 14:59 22:59 06:59 Intake Total 005 087 7370 Balance 213 339 5663 Intake: Intake, IV Titration 500 1000 Amount Sodium Chloride 0.9% 1, 500 1000 000 ml @ 999 mls/hr IV . Q1H1M STA Rx#:[id number] Oral 240 Other: Voiding Method Toilet Toilet # Voids 2 # Bowel Movements 1 PHYSICAL EXAMINATION: Patient is lying in the bed comfortably, no acute distress, awake alert and oriented.. HEENT: Normocephalic. Neck is supple. Pupils reactive. Nostrils clear. Oral cavity is moist. Neck reveals no JVD, carotid bruits, or thyromegaly. CHEST EXAMINATION: Trachea is central. Symmetrical expansion. Lung ayoub clear to auscultation and percussion. CARDIAC: Normal S1, S2 with no gallops. No murmurs ABDOMEN: Soft. Bowel sounds present. Nontender. No organomegaly. No abdominal bruits. Extremities: reveal no edema. No clubbing or cyanosis Neurologically awake, alert, oriented x3 with well-coordinated movements. No focal deficits noted Skin: No rash or skin lesions. Psychiatric: Coperative. Nonsuicidal, Musculoskeletal: No joint swelling or deformity. Normal range of motion. Results CBC & Chem 7: 06/01/22 05:23 05/30/22 22:30 Thrombosis Risk Factor Assmnt - DVT/VTE Prophylaxis DVT/VTE Prophylaxis: Mechanical Prophylaxis ordered - Choose All That Apply Any of the Below Risk Factors Present?: No Other Risk Factors: No Other congenital or acquired thrombophilia - If yes, enter type in comment: No Thrombosis Risk Factor Assessment Level: Very Low Risk Assessment and Plan Assessment: Bright red blood per rectum likely hemorrhoidal bleed versus rule out inflammatory bowel disease. Hypokalemia History of migraine headaches Scoliosis GERD Anxiety DVT prophylaxis with SCDs Plan: Patient will be continued on gentle IV hydration and monitor H&H closely. Replace electrolytes. Continue pain medications and general surgery was consulted for further evaluation. Follow-up ESR and CRP levels. Discussed with her mother at bedside in detail. Time with Patient: Greater than 30
[2022-06-01] MEDS: DOCUSATE 100 MG CAP PO SCH ×2 (08:04→19:48)
[2022-06-01] MEDS: PYRIDOXINE 50 MG TAB PO SCH (08:04)
[2022-06-01] MEDS: CITALOPRAM HYDROBROMIDE 20 MG TAB PO SCH (08:04)
[2022-06-01] MEDS: PANTOPRAZOLE 40 MG/10 ML VIAL IV SCH (08:04)
[2022-06-01 09:04] LABS: Basophils # (A) 0.02 X 10*3/uL (0.00-0.10); Basophils % (A) 0.4 %; Eosinophils # (A) 0.15 X 10*3/uL (0.04-0.35); Eosinophils % (A) 3.1 %; HCT 32.6 % (37.2-46.3); HGB 10.8 g/dL (12.0-15.0); Immature Grans, Automated 0 %; Lymphocytes # (A) 2.35 X 10*3/uL (0.90-5.00); Lymphocytes % (A) 48.4 %; MCH 30.1 pg (27.0-32.0); MCHC 33.1 g/dL (32.0-37.0); MCV 90.8 fL (80.0-97.0); Mean Platelet Volume 10.4 fL (9.5-12.2); Monocytes # (A) 0.41 X 10*3/uL (0.20-1.00); Monocytes % (A) 8.4 %; NRBC Per 100 WBC 0 /100 WBCS (0.0-0.0); Neutrophils # (A) 1.93 X 10*3/uL (1.80-7.70); Neutrophils % (A) 39.7 %; Platelet Count 183 X 10*3/uL (140-440); RBC 3.59 X 10*6/uL (4.10-5.20); RDW 12.8 % (11.5-14.5); WBC 4.86 X 10*3/uL (4.50-10.00)
--- NOTE | 2022-06-01 10:45 | P.PN ---
Progress Note - Text Progress Note Date: 06/01/22 Patient's had some bloody mucus discharge bowel movements. She has some minimal lower quadrant abdominal pain. On exam vital signs are stable. Abdomen soft. There patient be scheduled for colonoscopy in the a.m. to evaluate for possible colitis.
[2022-06-01] MEDS ORDERED: PEG 3350 (236 GM/BTL) + LYTES 4,000 ML BOTTLE PO ONE (11:00)
[2022-06-01] MEDS: MORPHINE SULFATE 2 MG/ML SYRINGE IVP PRN (16:48)
--- NOTE | 2022-06-01 19:48 | P.PN ---
Subjective Progress Note Date: 06/01/22 Patient is a 22-year-old female with known history of GERD, migraine headaches and scoliosis and anxiety and also using vape presents to ER with complaints of bright red blood per rectum. Patient has been having bright blood with occasional clots for the past 2 days. Patient also felt dizzy and lightheaded and felt weak and almost passed out. Patient was also complaining of lower abdominal discomfort on admission. No fever no chills. No complaints of nausea vomiting or diarrhea. No chest pain or shortness of breath. CT of the abdomen pelvis on admission showed there is small amount of low-dens ity free fluid in the pelvis. Normal appendix. Denies any active bleeding at this time. No prior history of GI bleed. Laboratory data showed WBC 7.0 hemoglobin 12.8 and platelets 206 Sodium 139 potassium 3.2 chloride 105 bicarb is 18 BUN 14 and creatinine 0.64 and blood sugar is 144, magnesium 1.8 Urinalysis is negative for infection. Urine test is negative. Patient states that her family members does have history of ulcerative colitis and lupus. 06/01/2022 Patient is currently sitting on side of the road. Feels better. No complaints of chest pain. No abdominal pain. Patient states that she did have streaks of blood on the pad. No complaints of nausea or vomiting or diarrhea. No fever no chills. Laboratory pressure WBC 4.8 hemoglobin 10.8 and platelets 183 General surgery is planning for colonoscopy tomorrow. Continue with bowel preparation. Current medications reviewed. Objective - Vital Signs Vital signs: Vital Signs Temp 98.1 F 06/01/22 13:36 Pulse 75 06/01/22 13:36 Resp 12 06/01/22 13:36 BP 101/64 06/01/22 13:36 Pulse Ox 100 06/01/22 13:36 FiO2 Intake & Output 06/01/22 06/01/22 06/02/22 06:59 18:59 06:59 Intake Total 1500 838 Balance 1500 838 Intake: Intake, IV Titration 1500 Amount Sodium Chloride 0.9% 1, 1500 000 ml @ 999 mls/hr IV . Q1H1M STA Rx#:[id number] Oral 838 Other: Voiding Method Toilet Toilet # Voids 1 # Bowel Movements 1 - Exam PHYSICAL EXAMINATION: Patient is lying in the bed comfortably, no acute distress, awake alert and oriented.. HEENT: Normocephalic. Neck is supple. Pupils reactive. Nostrils clear. Oral cavity is moist. Neck reveals no JVD, carotid bruits, or thyromegaly. CHEST EXAMINATION: Trachea is central. Symmetrical expansion. Lung ayoub clear to auscultation and percussion. CARDIAC: Normal S1, S2 with no gallops. No murmurs ABDOMEN: Soft. Bowel sounds present. Nontender. No organomegaly. No abdominal bruits. Extremities: reveal no edema. No clubbing or cyanosis Neurologically awake, alert, oriented x3 with well-coordinated movements. No focal deficits noted Skin: No rash or skin lesions. Psychiatric: Coperative. Nonsuicidal, Musculoskeletal: No joint swelling or deformity. Normal range of motion. - Labs CBC & Chem 7: 06/01/22 05:23 05/30/22 22:30 Labs: Abnormal Lab Results - Last 24 Hours (Table) 06/01/22 Range/Units 05:23 RBC 3.59 L (4.10-5.20) X 10*6/uL Hgb 10.8 L (12.0-15.0) g/dL Hct 32.6 L (37.2-46.3) % Assessment and Plan Assessment: Bright red blood per rectum likely hemorrhoidal bleed versus rule out inflammatory bowel disease. Hypokalemia History of migraine headaches Scoliosis GERD Anxiety DVT prophylaxis with SCDs Plan: Patient will be continued on gentle IV hydration and monitor H&H closely. Replace electrolytes. Continue pain medications .General surgery is planning for colonoscopy tomorrow. ESR and CRP not elevated.. Discussed with her mother at bedside in detail. Time with Patient: Greater than 30
[2022-06-02] MEDS: ONDANSETRON 4 MG/2 ML VIAL IVP PRN (04:21)
[2022-06-02] MEDS: PYRIDOXINE 50 MG TAB PO SCH (07:55)
[2022-06-02] MEDS: CITALOPRAM HYDROBROMIDE 20 MG TAB PO SCH (07:55)
[2022-06-02] MEDS: PANTOPRAZOLE 40 MG/10 ML VIAL IV SCH (07:56)
[2022-06-02] MEDS: DOCUSATE 100 MG CAP PO SCH (07:56)
[2022-06-02] MEDS: MORPHINE SULFATE 2 MG/ML SYRINGE IVP PRN (11:11)
[2022-06-02] MEDS ORDERED: PROPOFOL 10 MG/ML 20 ML VIAL IV ONE (13:04)
[2022-06-02] MEDS ORDERED: IV FLUID CONTINUATION 1,000 ML IV ONE (13:17)
--- NOTE | 2022-06-02 13:19 | P.OP ---
Date of Procedure: 06/02/22 Preoperative Diagnosis: Bleed Postoperative Diagnosis: External hemorrhoids Procedure(s) Performed: Colonoscopy Anesthesia: MAC Surgeon: Trung Calvin Pathology: none sent Condition: stable Disposition: PACU Description of Procedure: The patient's placed on the endoscopy table in the lateral position she received IV sedation. Digital rectal exam was performed. There is evidence of a partially thrombosed hemorrhoid which had bled. There is no active bleeding seen. The flexible colonoscope was then placed patient anus and passed throughout the colon. The colon was very tortuous. Scope was passed beyond the splenic flexure secondary to tortuous valve. This point scope was withdrawn. The mucosa appeared normal. There isany bleeding or inflammatory changes. Scope was brought back through the descending and sigmoid colon. There is no blood seen. Scope back the rectum this appeared normal. Scope withdrawn for patient. Procedure the patient had bleeding from hemorrhoids.
[2022-06-02 15:00] VITALS: BP 107/67; PULSE 65; RESP 18; TEMP 98.6
--- NOTE | 2022-06-05 15:24 | P.DS ---
Providers Date of admission: 05/31/22 03:31 Expected date of discharge: 06/02/22 Attending physician: Bao Luong Consults: 05/31/22 03:31 Consult Physician Routine Consulting Provider: Trung Calvin Consult Reason/Comments: gib Do you want consulting provider notified?: Yes Primary care physician: Parveen Wiggins [facility] Course: Final diagnosis Bright red blood per rectum likely hemorrhoidal bleed, ruled out inflammatory bowel disease. Hypokalemia History of migraine headaches Scoliosis GERD Anxiety DVT prophylaxis Discharge disposition Patient is being discharged in a stable condition with guarded prognosis to home. Patient will follow-up with Dr. Wiggins in the outpatient setting upon discharge. Patient is to continue with Colace twice daily. Total time taken is greater than 35 minutes. Hospital course This is a 22-year-old female who was recently admitted with rectal bleeding and was evaluated by general surgery and underwent colonoscopy which shows a hemorrhoid. Patient will be continued on Colace twice daily and instructed to use Preparation H and follow-up with primary care provider. Hemoglobin stable at 10.8. Currently no reports of chest pain, shortness of breath, or palpitations. Patient is afebrile. No reports of nausea or vomiting and patient is tolerating diet. Patient will be discharged home today. Physical exam: Gen: This is a 22-year-old female awake, alert and oriented 3, well-developed, well-nourished HEENT: Head is atraumatic, normocephalic. Pupils equal, round. Sclerae is anicteric. NECK: Supple. No JVD. No lymphadenopathy. No thyromegaly. LUNGS: Clear to auscultation. No wheezes or rhonchi. No intercostal retractions. HEART: Regular rate and rhythm. No murmur. ABDOMEN: Soft. Bowel sounds are present. No masses. No tenderness. EXTREMITIES: No pedal edema. No calf tenderness. NEUROLOGICAL: Patient is awake, alert and oriented x3. Cranial nerves 2 through 12 are grossly intact. Please refer to medication reconciliation sheet for a list of medications. The impression and plan of care has been dictated by Lillian Buck, Nurse Practitioner as directed. Dr. Veronica MD I have performed a history and examination and MDM of this patient, discussed the same with the dictator, and agree with the dictator's assessment and plan as written ,documented as a scribe. Based on total visit time, I have performed more than 50% of the visit. Patient Condition at Discharge: Stable Plan - Discharge Summary New Discharge Prescriptions: New Docusate [Colace] 100 mg PO BID #60 cap Continue Kariva 1 tab PO DAILY Citalopram Hydrobromide [Citalopram HBr] 20 mg PO DAILY Cholecalciferol [Vitamin D3 (25 Mcg = 1000 Iu)] 25 mcg PO DAILY Turmeric Root Extract [Turmeric] 500 mg PO DAILY Pyridoxine HCl (Vitamin B6) [Vitamin B-6] 100 mg PO DAILY Discharge Medication List Cholecalciferol [Vitamin D3 (25 Mcg = 1000 Iu)] 25 mcg PO DAILY 05/31/22 [History] Citalopram Hydrobromide [Citalopram HBr] 20 mg PO DAILY 05/31/22 [History] Kariva 1 tab PO DAILY 05/31/22 [History] Pyridoxine HCl (Vitamin B6) [Vitamin B-6] 100 mg PO DAILY 05/31/22 [History] Turmeric Root Extract [Turmeric] 500 mg PO DAILY 05/31/22 [History] Docusate [Colace] 100 mg PO BID #60 cap 06/02/22 [Rx] Follow up Appointment(s)/Referral(s): Parveen Wiggins MD [Primary Care Provider] - 1-2 days Patient Instructions/Handouts: Hemorrhoids (DC), Colonoscopy (DC) Activity/Diet/Wound Care/Special Instructions: Activity Limited until follow-up Follow-up with primary care provider at discharge Continue current medications May use Preparation H Discharge Disposition: HOME SELF-CARE
== END 2022-06-02 15:48 | disposition home or self-care (01) ==
LOC: EC 22:10 → 6NMEDSUR 05-31 03:31
PROVIDERS: ADMIT Hospitalist; ATTEND Hospitalist
DX: K64.4 Residual hemorrhoidal skin tags (principal); E87.6 Hypokalemia; Q43.9 Congenital malformation of intestine, unspecified; R42 Dizziness and giddiness; R55 Syncope and collapse; R10.30 Lower abdominal pain, unspecified; K21.9 Gastro-esophageal reflux disease without esophagitis; L40.9 Psoriasis, unspecified; G43.909 Migraine, unspecified, not intractable, without status migrainosus; M41.9 Scoliosis, unspecified; F41.9 Anxiety disorder, unspecified; F17.290 Nicotine dependence, other tobacco product, uncomplicated; Z79.899 Other long term (current) drug therapy; Z98.890 Other specified postprocedural states; Z82.3 Family history of stroke; Z83.79 Family history of other diseases of the digestive system; Z84.89 Family history of other specified conditions
CPT/HCPCS: 96376 ×3; 96375; 96361; 96374; 99285; 36415 ×2; 86900; 86901; 80053; 85652; 83735; 84484; 85025 ×2; 85027; 85730; 86850; 86140; 81001; 81025; 74177; 45378; G0378 ×3; J2405 ×2; J2270 ×3; J2704; C9113 ×3; Q9967

== ENCOUNTER 2022-12-11 13:54 | Emergency (ER) | payer OTHER ==
[2022-12-11 14:17] VITALS: BP 127/85; PULSE 73; RESP 16; TEMP 99
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
[2022-12-11 15:49] LABS: Basophils % (A) 1 %; Eosinophils # (A) 0.1 k/uL (0-0.7); Eosinophils % (A) 2 %; HCT 42.9 % (34.0-46.0); HGB 14.4 gm/dL (11.4-16.0); Lymphocytes # (A) 1.7 k/uL (1.0-4.8); Lymphocytes % (A) 34 %; MCH 30.9 pg (25.0-35.0); MCHC 33.6 g/dL (31.0-37.0); MCV 91.9 fL (80.0-100.0); Monocytes # (A) 0.2 k/uL (0-1.0); Monocytes % (A) 5 %; Neutrophils % (A) 58 %; Platelet Count 200 k/uL (150-450); RBC 4.67 m/uL (3.80-5.40); WBC 5.1 k/uL (3.8-10.6)
[2022-12-11 15:58] LABS: ALT 19 U/L (4-34); AST 26 U/L (14-36); African American GFR (CKD) >90 (>60 ml/min/1.73 sqM); Albumin 4.7 g/dL (3.5-5.0); Alkaline Phosphatase 54 U/L (38-126); Anion Gap 9 mmol/L; Blood Urea Nitrogen 7 mg/dL (7-17); Calcium 9.7 mg/dL (8.4-10.2); Carbon Dioxide 23 mmol/L (22-30); Chloride 109 mmol/L (98-107); Glucose 116 mg/dL (74-99); Non-African American GFR(CKD) >90 (>60 ml/min/1.73 sqM); Sodium 141 mmol/L (137-145); Total Bilirubin 0.9 mg/dL (0.2-1.3); Total Protein 7.5 g/dL (6.3-8.2)
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
== END 2022-12-11 17:41 | disposition home or self-care (01) ==
LOC: EC 13:54
DX: R55 Syncope and collapse (principal); F17.290 Nicotine dependence, other tobacco product, uncomplicated; Z90.89 Acquired absence of other organs
CPT/HCPCS: 36415; 70450; 72125; 80053; 81025; 85025; 93005; 99284

== ENCOUNTER 2023-01-29 08:10 | Day surgery (SDC) | payer OTHER ==
[2023-01-27 15:00] VITALS: BMI 20.5
[2023-01-29 08:29] VITALS: BP 112/69; PULSE 74; RESP 18; TEMP 98.5
[2023-01-29] MEDS ORDERED: SODIUM CHLORIDE 0.9% 500 ML 500 ML IV ONE (09:21)
--- NOTE | 2023-01-29 10:34 | P.EPPROC ---
- EP Procedure Note Electrophysiology Procedure Note: Diagnosis Recurrent syncope Twelve-lead EKG shows sinus rhythm normal ME and normal ST segments. QT interval is normal no delta waves Tilt table test per protocol Baseline blood pressure 103/67 mmHg Baseline heart rate 58 beats a minute patient was tilted upright at an angle of 70 per protocol Heart rate and blood pressure remained stable No change in heart rate blood pressure noted prototypical Patient complained of being warm and lightheaded and nauseous. Later her eyes rolled back she was unresponsive to name she said everything went out and felt very warm and dizzy However there was absolutely no change in her heart rate or blood pressure Impression Normal twelve-lead EKG Unresponsiveness to name, eyes rolled back during the tilt table test in the setting of stable blood pressure and heart rate that remain unchanged from before Consider psychogenic causes of apparent altered mentation No evidence for dysautonomia No evidence for orthostatic intolerance No evidence for neurocardiogenic syncope
== END 2023-01-29 10:29 | disposition home or self-care (01) ==
LOC: CATHEP 08:10
PROVIDERS: ATTEND Internal Medicine Clinical Cardiac Electrophysiology
DX: R55 Syncope and collapse (principal); Z90.89 Acquired absence of other organs; Z79.899 Other long term (current) drug therapy; Z87.891 Personal history of nicotine dependence; Z98.890 Other specified postprocedural states
CPT/HCPCS: 81025; 93660

== ENCOUNTER → 2024-04-01 | Outpatient (CLI) | payer OTHER ==
--- NOTE | 2024-04-01 13:42 | MR ---
EXAMINATION TYPE: MR shoulder LT wo con DATE OF EXAM: 04/01/2024 COMPARISON: None HISTORY: LT SHOULDER CONSTANT PAIN AND LIMITED MOVEMENT DUE TO AN INJURY AT WORK TECHNIQUE: Multiplanar, multisequence imaging of the left shoulder is performed without contrast. FINDINGS: There is no bone contusion, fracture, joint effusion or osteophytic change of the AC joint and glenoh umeral joint. There is a small rim rent tear of the supraspinatus without retraction. The subscapularis tendon and infraspinatus tendons are intact. The biceps tendon is normal in signal intensity and in position within the bi abnormality seen. Cipit al groove. The biceps anchor is intact. There is no labral tear. The periarticular soft tissues are normal. There is no subacromial or subdeltoid bursitis. IMPRESSION: Small remnant tear of the supraspinatus tendon with no other significant seen.
== END | disposition home or self-care (01) ==
LOC: RADMRIMAIN 11:22 → MERGE 11:45
PROVIDERS: ATTEND Emergency Medicine
DX: S43.402D Unspecified sprain of left shoulder joint, subsequent encounter (principal)

== ENCOUNTER → 2024-09-22 | Outpatient (CLI) | payer OTHER ==
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
== END | disposition home or self-care (01) ==
LOC: RADMRIMAIN 16:44
PROVIDERS: ATTEND Ophthalmology
DX: H46.01 Optic papillitis, right eye (principal); G51.0 Bell's palsy
CPT/HCPCS: 70551

== ENCOUNTER → 2025-01-17 | Outpatient (CLI) | payer OTHER | END | disposition home or self-care (01) | LOC: LABWHC1 16:32 | PROVIDERS: ATTEND Optometrist | DX: G51.0 Bell's palsy (principal) | CPT/HCPCS: 36415; 86041 ==